=== PATIENT | male | born 1955 | race Caucasian/White ===

== ENCOUNTER 2018-06-17 10:35 | Inpatient (IN) | payer MEDICAID ==
[~2018-06-17] VITALS: Ht 172.7 cm; Wt 60.2 kg
[2018-06-17] MEDS ORDERED: LABETALOL 5MG/ML, 20ML ONE (11:12)
[2018-06-17] MEDS ORDERED: SODIUM CHLORIDE FLUSH 10ML SYR IVF ONE (11:30)
[2018-06-17] MEDS ORDERED: LABETALOL 5MG/ML, 20ML IVPush ONE (11:30)
[2018-06-17] MEDS ORDERED: SODIUM CHLORIDE 0.9% 1,000ML IVBOLUS ONE (11:30)
[2018-06-17 12:06] LABS: ALBUMIN 4.3 g/dL (3.4-5.0); ANION GAP 27 mmol/L (5-15); CALCIUM 8.8 mg/dL (8.5-10.1); CHLORIDE 96 mmol/L (98-107)
[2018-06-17 12:08] LABS: D-DIMER 1.19 ug/mlFEU (0.00-0.52); INTERNATIONAL NORMALIZED RATIO 1.01 (0.93-1.1); PROTHROMBIN TIME 10.5 Seconds (9.6-11.5)
[2018-06-17 12:12] LABS: ALANINE AMINOTRANSFERASE 190 U/L (12-78); ALKALINE PHOSPHATASE 240 U/L (45-117); BILIRUBIN,TOTAL 3.5 mg/dL (0.2-1.0); CREATININE 1.17 mg/dL (0.7-1.3); TOTAL PROTEIN 8.7 g/dL (6.4-8.2); TROPONIN I < 0.015 ng/mL (0.000-0.045)
[2018-06-17 12:48] LABS: MEAN CORPUSCULAR HEMOGLOBIN 36.7 pg (27.5-34.5); MEAN CORPUSCULAR HGB CONC 34.4 g/dL (33.2-36.2); MEAN CORPUSCULAR VOLUME 106.8 fL (81-97); MEAN PLATELET VOLUME 9.8 fL (7.4-10.4); RED BLOOD COUNT 3.72 x10^6/uL (4.38-5.82); RED CELL DISTRIBUTION WIDTH 14.8 % (9.4-14.8)
[2018-06-17 12:49] LABS: HEMOGRAM NOTE RECHECKED; PLATELET COUNT 49 x10^3/uL (130-400)
[2018-06-17 12:51] LABS: <PLATELET ESTIMATE> DECREASED; <PLT MORPHOLOGY> NORMAL PLT MORPH; ANISOCYTOSIS 1+; BASOPHILS # (AUTO) 0.03 x10^3/uL (0-0.1); BASOPHILS % (AUTO) 1 % (0-1); EOSINOPHILS # (AUTO) 0.01 x10^3/uL (0-0.4); EOSINOPHILS % (AUTO) 0 % (1-7); LYMPHOCYTES # (AUTO) 2.23 x10^3/uL (1-3.4); LYMPHOCYTES % (AUTO) 35 % (22-44); MD MORPH REVIEW ONLY; MONOCYTES # (AUTO) 0.35 x10^3/uL (0.2-0.8); MONOCYTES % (AUTO) 6 % (2-9); NEUTROPHILS % (AUTO) 59 % (42-75)
[2018-06-17] MEDS ORDERED: ALBU90AE IH (13:26)
[2018-06-17] MEDS ORDERED: ATOR40TA78 PO (13:26)
[2018-06-17] MEDS ORDERED: METO25TA35 PO (13:26)
[2018-06-17] MEDS ORDERED: LORazepam 1MG TABLET PO ONE (14:30)
[2018-06-17] MEDS ORDERED: LORazepam 1MG TABLET ONE (14:55)
[2018-06-17] MEDS ORDERED: ONDANSETRON 2MG/ML, 2ML IVPush PRN (15:30)
[2018-06-17] MEDS ORDERED: LORazepam 1MG TABLET PO PRN ×3 (15:30)
[2018-06-17] MEDS ORDERED: POLYETHYLENE GLYCOL 17 GM PACKET PO PRN (15:30)
[2018-06-17] MEDS ORDERED: ONDANSETRON ODT 4 MG PO PRN (15:30)
[2018-06-17] MEDS ORDERED: LABETALOL 5MG/ML, 20ML IVPush PRN (15:30)
[2018-06-17] MEDS ORDERED: LORazepam 2 MG/ML, 1ML IV PRN ×4 (15:30)
[2018-06-17 15:47] LABS: FREE T4 (FREE THYROXINE) 0.89 ng/dL (0.76-1.46)
[2018-06-17] MEDS ORDERED: cloniDINE 0.1MG PATCH TD SCH (16:00)
[2018-06-17] MEDS ORDERED: CHLORDIAZEPOXIDE 25 MG CAPSULE PO PRN (16:00)
[2018-06-17 16:05] VITALS: BP 167/109
[2018-06-17] MEDS: AMLODIPINE 5 MG TABLET PO SCH (16:49)
[2018-06-17] MEDS: GABAPENTIN 100 MG CAPSULE PO SCH ×2 (16:49→20:26)
[2018-06-17] MEDS: CARVEDILOL 12.5 MG TABLET PO SCH ×2 (16:49→18:00)
[2018-06-17 17:08] LABS: FOLATE LEVEL 6.8 ng/mL (3.1-17.5); FREE T4 (FREE THYROXINE) 0.76 ng/dL (0.76-1.46)
[2018-06-17] MEDS: POTASSIUM CHLORIDE 20 MEQ, MAGNESIUM SULFATE 1 GM, FOLIC ACID 1 MG, THIAMINE 200 MG, MV... IV SCH (17:43)
[2018-06-17] MEDS: LORazepam 2 MG/ML, 1ML IV PRN (17:45)
[2018-06-17 18:44] VITALS: BP 154/101
[2018-06-17] MEDS: LORazepam 0.5MG TABLET PO PRN (20:28)
[2018-06-17] MEDS ORDERED: ATORVASTATIN 40 MG TABLET PO SCH (21:00)
[2018-06-18 00:45] VITALS: BP 182/110
[2018-06-18 01:39] VITALS: BP 162/97
[2018-06-18] MEDS: POTASSIUM CHLORIDE 10 MEQ in D5%-0.45% NACL 1,000 ML IV SCH ×2 (03:57→20:51)
[2018-06-18] MEDS: LORazepam 2 MG/ML, 1ML IV PRN ×4 (03:57→21:25)
[2018-06-18 05:46] VITALS: BP 155/96
[2018-06-18] MEDS: CARVEDILOL 12.5 MG TABLET PO SCH ×2 (05:46→16:52)
[2018-06-18 06:02] LABS: MEAN CORPUSCULAR HEMOGLOBIN 36.9 pg (27.5-34.5); MEAN CORPUSCULAR HGB CONC 34.7 g/dL (33.2-36.2); MEAN CORPUSCULAR VOLUME 106.3 fL (81-97); RED BLOOD COUNT 3.51 x10^6/uL (4.38-5.82); RED CELL DISTRIBUTION WIDTH 14.4 % (9.4-14.8)
[2018-06-18 06:08] LABS: ALANINE AMINOTRANSFERASE 159 U/L (12-78); ALBUMIN 3.8 g/dL (3.4-5.0); ANION GAP 14 mmol/L (5-15); CALCIUM 8.2 mg/dL (8.5-10.1); CHLORIDE 95 mmol/L (98-107); CREATININE 0.94 mg/dL (0.7-1.3)
[2018-06-18 06:18] LABS: ALKALINE PHOSPHATASE 228 U/L (45-117); TOTAL PROTEIN 8.1 g/dL (6.4-8.2)
[2018-06-18 06:45] LABS: BASOPHILS # (AUTO) 0.01 x10^3/uL (0-0.1); BASOPHILS % (AUTO) 0 % (0-1); EOSINOPHILS # (AUTO) 0.04 x10^3/uL (0-0.4); EOSINOPHILS % (AUTO) 1 % (1-7); LYMPHOCYTES # (AUTO) 1.18 x10^3/uL (1-3.4); LYMPHOCYTES % (AUTO) 28 % (22-44); MD SCAN; MEAN PLATELET VOLUME 9.1 fL (7.4-10.4); MONOCYTES # (AUTO) 0.35 x10^3/uL (0.2-0.8); MONOCYTES % (AUTO) 8 % (2-9); NEUTROPHILS # (AUTO) 2.63 x10^3/uL (1.8-6.8); NEUTROPHILS % (AUTO) 63 % (42-75)
[2018-06-18 06:52] LABS: PLATELET COUNT 36 x10^3/uL (130-400)
[2018-06-18 07:10] VITALS: BP 136/92
[2018-06-18] MEDS ORDERED: MAGNESIUM SULFATE PMX 2GM/50ML 50 ML IV ONE ×3 (07:30→12:00)
[2018-06-18] MEDS: MAGNESIUM SULFATE MC SCH ×3 (08:00→17:04)
[2018-06-18] MEDS: SENNA/DOCUSATE TABLET PO SCH (09:00)
[2018-06-18] MEDS ORDERED: CHLORDIAZEPOXIDE 25 MG CAPSULE ONE (09:00)
[2018-06-18] MEDS: NEUTRA PHOS K 250 MG TABLET PO SCH ×3 (09:05→21:01)
[2018-06-18] MEDS: AMLODIPINE 5 MG TABLET PO SCH (09:06)
[2018-06-18] MEDS: GABAPENTIN 100 MG CAPSULE PO SCH ×3 (09:08→20:47)
[2018-06-18] MEDS: LORazepam 1MG TABLET PO PRN ×2 (09:08→17:55)
[2018-06-18] MEDS: CHLORDIAZEPOXIDE 25 MG CAPSULE PO SCH ×3 (09:10→20:47)
[2018-06-18] MEDS: RIFAXIMIN 550 MG TABLET PO SCH ×2 (12:25→20:47)
[2018-06-18] MEDS: LORazepam 0.5MG TABLET PO PRN (12:25)
[2018-06-18] MEDS: LACTULOSE 20 GM/30 ML UDC PO SCH ×4 (12:25→21:00)
[2018-06-18 13:15] VITALS: BP 124/90
[2018-06-18] MEDS: POTASSIUM CHLORIDE 20 MEQ, MAGNESIUM SULFATE 1 GM, FOLIC ACID 1 MG, THIAMINE 200 MG, MV... IV SCH (16:59)
[2018-06-18] MEDS ORDERED: FUROSEMIDE 20 MG/2 ML ONE (18:34)
[2018-06-18] MEDS ORDERED: FUROSEMIDE 20 MG/2 ML IV ONE (19:00)
[2018-06-18 19:53] VITALS: BP 130/86
[2018-06-19 02:56] VITALS: BP 118/84
[2018-06-19] MEDS: CARVEDILOL 12.5 MG TABLET PO SCH ×2 (07:00→18:00)
[2018-06-19 07:30] VITALS: BP 109/72
[2018-06-19 07:50] LABS: ALBUMIN 3.7 g/dL (3.4-5.0); ANION GAP 11 mmol/L (5-15); CHLORIDE 95 mmol/L (98-107)
[2018-06-19 07:53] LABS: ALANINE AMINOTRANSFERASE 149 U/L (12-78); ALKALINE PHOSPHATASE 223 U/L (45-117); BILIRUBIN,TOTAL 3.1 mg/dL (0.2-1.0); CREATININE 0.94 mg/dL (0.7-1.3); TOTAL PROTEIN 7.6 g/dL (6.4-8.2)
[2018-06-19] MEDS: MAGNESIUM SULFATE MC SCH (08:00)
[2018-06-19 08:05] LABS: BASOPHILS # (AUTO) 0.03 x10^3/uL (0-0.1); BASOPHILS % (AUTO) 0 % (0-1); EOSINOPHILS # (AUTO) 0.06 x10^3/uL (0-0.4); EOSINOPHILS % (AUTO) 1 % (1-7); LYMPHOCYTES # (AUTO) 0.89 x10^3/uL (1-3.4); LYMPHOCYTES % (AUTO) 13 % (22-44); MD SCAN; MEAN CORPUSCULAR HEMOGLOBIN 36.3 pg (27.5-34.5); MEAN CORPUSCULAR HGB CONC 34.6 g/dL (33.2-36.2); MEAN CORPUSCULAR VOLUME 105.2 fL (81-97); MEAN PLATELET VOLUME 10.3 fL (7.4-10.4); MONOCYTES # (AUTO) 0.33 x10^3/uL (0.2-0.8); MONOCYTES % (AUTO) 5 % (2-9); NEUTROPHILS # (AUTO) 5.32 x10^3/uL (1.8-6.8); NEUTROPHILS % (AUTO) 80 % (42-75); RED BLOOD COUNT 3.52 x10^6/uL (4.38-5.82); RED CELL DISTRIBUTION WIDTH 14.2 % (9.4-14.8)
[2018-06-19 08:12] LABS: PLATELET COUNT 32 x10^3/uL (130-400)
[2018-06-19] MEDS: SENNA/DOCUSATE TABLET PO SCH (08:38)
[2018-06-19] MEDS: AMLODIPINE 5 MG TABLET PO SCH (09:00)
[2018-06-19] MEDS: LACTULOSE 20 GM/30 ML UDC PO SCH ×3 (09:00→21:00)
[2018-06-19] MEDS: RIFAXIMIN 550 MG TABLET PO SCH ×2 (09:00→21:00)
[2018-06-19] MEDS: NEUTRA PHOS K 250 MG TABLET PO SCH ×2 (09:00→21:00)
[2018-06-19] MEDS: CHLORDIAZEPOXIDE 25 MG CAPSULE PO SCH ×3 (09:00→21:45)
[2018-06-19] MEDS: GABAPENTIN 100 MG CAPSULE PO SCH ×3 (09:00→21:00)
[2018-06-19] MEDS: LORazepam 2 MG/ML, 1ML IV PRN ×4 (10:02→18:22)
[2018-06-19] MEDS ORDERED: MAGNESIUM SULFATE PMX 2GM/50ML 50 ML IV ONE (13:00)
[2018-06-19] MEDS ORDERED: CHLORDIAZEPOXIDE 25 MG CAPSULE PO ONE (13:30)
[2018-06-19] MEDS: POTASSIUM CHLORIDE 10 MEQ in D5%-0.45% NACL 1,000 ML IV SCH (13:47)
[2018-06-19 14:00] VITALS: BP 118/81
[2018-06-19] MEDS: POTASSIUM CHLORIDE 20 MEQ, MAGNESIUM SULFATE 1 GM, FOLIC ACID 1 MG, THIAMINE 200 MG, MV... IV SCH (18:22)
[2018-06-19 23:12] VITALS: BP 126/87
[2018-06-20] MEDS: POTASSIUM CHLORIDE 10 MEQ in D5%-0.45% NACL 1,000 ML IV SCH ×3 (00:13→22:03)
[2018-06-20 03:05] VITALS: BP 136/90
[2018-06-20 04:37] LABS: MEAN CORPUSCULAR HEMOGLOBIN 36.5 pg (27.5-34.5); MEAN CORPUSCULAR HGB CONC 33.9 g/dL (33.2-36.2); MEAN CORPUSCULAR VOLUME 107.6 fL (81-97); MEAN PLATELET VOLUME 9.9 fL (7.4-10.4); RED BLOOD COUNT 3.26 x10^6/uL (4.38-5.82); RED CELL DISTRIBUTION WIDTH 14.4 % (9.4-14.8)
[2018-06-20 04:38] LABS: PLATELET COUNT 30 x10^3/uL (130-400)
[2018-06-20 04:42] LABS: ALANINE AMINOTRANSFERASE 140 U/L (12-78); ALBUMIN 3.2 g/dL (3.4-5.0); ANION GAP 7 mmol/L (5-15); CALCIUM 7.8 mg/dL (8.5-10.1); CHLORIDE 98 mmol/L (98-107); CREATININE 0.87 mg/dL (0.7-1.3)
[2018-06-20 04:44] LABS: ALKALINE PHOSPHATASE 199 U/L (45-117); BILIRUBIN,TOTAL 2.4 mg/dL (0.2-1.0); TOTAL PROTEIN 7.1 g/dL (6.4-8.2)
[2018-06-20 05:21] LABS: BASOPHILS # (AUTO) 0.02 x10^3/uL (0-0.1); BASOPHILS % (AUTO) 0 % (0-1); EOSINOPHILS # (AUTO) 0.08 x10^3/uL (0-0.4); EOSINOPHILS % (AUTO) 2 % (1-7); LYMPHOCYTES # (AUTO) 1.51 x10^3/uL (1-3.4); LYMPHOCYTES % (AUTO) 29 % (22-44); MD SCAN; MONOCYTES # (AUTO) 0.48 x10^3/uL (0.2-0.8); MONOCYTES % (AUTO) 9 % (2-9); NEUTROPHILS # (AUTO) 3.17 x10^3/uL (1.8-6.8); NEUTROPHILS % (AUTO) 60 % (42-75)
[2018-06-20] MEDS: CARVEDILOL 12.5 MG TABLET PO SCH ×2 (06:00→17:26)
[2018-06-20] MEDS: AMLODIPINE 5 MG TABLET PO SCH (08:16)
[2018-06-20] MEDS: RIFAXIMIN 550 MG TABLET PO SCH ×2 (08:16→22:03)
[2018-06-20] MEDS: SENNA/DOCUSATE TABLET PO SCH (08:16)
[2018-06-20] MEDS: LACTULOSE 20 GM/30 ML UDC PO SCH ×3 (08:16→22:04)
[2018-06-20] MEDS: GABAPENTIN 100 MG CAPSULE PO SCH ×3 (08:16→22:04)
[2018-06-20] MEDS: NEUTRA PHOS K 250 MG TABLET PO SCH ×2 (08:16→22:03)
[2018-06-20 09:00] VITALS: BP 130/87
[2018-06-20] MEDS: CHLORDIAZEPOXIDE 25 MG CAPSULE PO SCH ×2 (09:41→22:04)
[2018-06-20 14:00] VITALS: BP 112/76
[2018-06-20] MEDS: POTASSIUM CHLORIDE 20 MEQ, MAGNESIUM SULFATE 1 GM, FOLIC ACID 1 MG, THIAMINE 200 MG, MV... IV SCH (16:15)
[2018-06-20 21:48] VITALS: BP 118/82
[2018-06-21] VITALS (7 sets, daily range): BP systolic 112–165; BP diastolic 76–107
[2018-06-21 04:49] LABS: ANION GAP 10 mmol/L (5-15); CALCIUM 7.5 mg/dL (8.5-10.1); CHLORIDE 98 mmol/L (98-107); CREATININE 0.93 mg/dL (0.7-1.3)
[2018-06-21 04:56] LABS: MEAN CORPUSCULAR HGB CONC 34.4 g/dL (33.2-36.2); MEAN CORPUSCULAR VOLUME 107.7 fL (81-97); RED BLOOD COUNT 3.24 x10^6/uL (4.38-5.82); RED CELL DISTRIBUTION WIDTH 13.7 % (9.4-14.8)
[2018-06-21] MEDS: CARVEDILOL 12.5 MG TABLET PO SCH ×2 (05:58→17:53)
[2018-06-21 06:01] LABS: MEAN PLATELET VOLUME 11.1 fL (7.4-10.4); PLATELET COUNT 51 x10^3/uL (130-400)
[2018-06-21 06:03] LABS: BASOPHILS # (AUTO) 0.02 x10^3/uL (0-0.1); BASOPHILS % (AUTO) 0 % (0-1); EOSINOPHILS # (AUTO) 0.06 x10^3/uL (0-0.4); EOSINOPHILS % (AUTO) 1 % (1-7); LYMPHOCYTES # (AUTO) 1.67 x10^3/uL (1-3.4); LYMPHOCYTES % (AUTO) 20 % (22-44); MD SCAN; MONOCYTES # (AUTO) 0.91 x10^3/uL (0.2-0.8); MONOCYTES % (AUTO) 11 % (2-9); NEUTROPHILS # (AUTO) 5.58 x10^3/uL (1.8-6.8); NEUTROPHILS % (AUTO) 68 % (42-75)
[2018-06-21] MEDS ORDERED: POTASSIUM CHLORIDE 20 MEQ TAB.ER.PRT PO ONE (07:30)
[2018-06-21] MEDS ORDERED: MAG SULFATE MC SCH (07:30)
[2018-06-21] MEDS ORDERED: MAGNESIUM SULFATE PMX 2GM/50ML 50 ML IV ONE ×2 (07:30)
[2018-06-21 08:00] LABS: ALBUMIN 3.1 g/dL (3.4-5.0); BILIRUBIN, DIRECT 2.2 mg/dL (0.1-0.2)
[2018-06-21 08:07] LABS: BILIRUBIN,INDIRECT 0.9 mg/dL (0.0-2.0); BILIRUBIN,TOTAL 3.1 mg/dL (0.2-1.0); TOTAL PROTEIN 6.7 g/dL (6.4-8.2)
[2018-06-21] MEDS: LACTULOSE 20 GM/30 ML UDC PO SCH ×3 (08:28→21:17)
[2018-06-21] MEDS: GABAPENTIN 100 MG CAPSULE PO SCH ×3 (08:28→21:17)
[2018-06-21] MEDS: AMLODIPINE 5 MG TABLET PO SCH (08:29)
[2018-06-21] MEDS: CHLORDIAZEPOXIDE 25 MG CAPSULE PO SCH ×2 (08:29→21:18)
[2018-06-21] MEDS: RIFAXIMIN 550 MG TABLET PO SCH ×2 (08:29→21:17)
[2018-06-21] MEDS: SENNA/DOCUSATE TABLET PO SCH (08:30)
[2018-06-21] MEDS ORDERED: MAGNESIUM SULFATE PMX 4GM/100M 100 ML IVPB ONE (08:30)
[2018-06-21] MEDS: POTASSIUM CHLORIDE 10 MEQ in D5%-0.45% NACL 1,000 ML IV SCH ×2 (09:56→21:17)
[2018-06-21 10:25] LABS: ALBUMIN 3.2 g/dL (3.4-5.0)
[2018-06-21 10:38] LABS: ALANINE AMINOTRANSFERASE 197 U/L (12-78); ALKALINE PHOSPHATASE 205 U/L (45-117); BILIRUBIN, DIRECT 2.1 mg/dL (0.1-0.2); BILIRUBIN,INDIRECT 0.7 mg/dL (0.0-2.0); BILIRUBIN,TOTAL 2.8 mg/dL (0.2-1.0); TOTAL PROTEIN 6.8 g/dL (6.4-8.2)
[2018-06-21 10:51] LABS: ACETAMINOPHEN < 2 mcg/mL (10-30)
[2018-06-21] MEDS: POTASSIUM CHLORIDE 20 MEQ, MAGNESIUM SULFATE 1 GM, FOLIC ACID 1 MG, THIAMINE 200 MG, MV... IV SCH (17:44)
[2018-06-22 00:38] VITALS: BP 132/52
[2018-06-22] MEDS: CARVEDILOL 12.5 MG TABLET PO SCH ×2 (05:45→18:20)
[2018-06-22 06:15] LABS: ALANINE AMINOTRANSFERASE 179 U/L (12-78); ALBUMIN 3.1 g/dL (3.4-5.0); ANION GAP 11 mmol/L (5-15); CALCIUM 8.4 mg/dL (8.5-10.1); CHLORIDE 100 mmol/L (98-107); CREATININE 0.68 mg/dL (0.7-1.3); MEAN CORPUSCULAR HEMOGLOBIN 37.3 pg (27.5-34.5); MEAN CORPUSCULAR HGB CONC 34.8 g/dL (33.2-36.2); MEAN CORPUSCULAR VOLUME 107.3 fL (81-97); MEAN PLATELET VOLUME 10.8 fL (7.4-10.4); PLATELET COUNT 68 x10^3/uL (130-400); RED BLOOD COUNT 3.32 x10^6/uL (4.38-5.82); RED CELL DISTRIBUTION WIDTH 14.1 % (9.4-14.8)
[2018-06-22 06:18] LABS: ALKALINE PHOSPHATASE 201 U/L (45-117); BILIRUBIN,TOTAL 2.1 mg/dL (0.2-1.0)
[2018-06-22 06:48] LABS: MD YES
[2018-06-22 06:54] LABS: LYMPHS% (MANUAL) 25 % (22-44); MONOS% (MANUAL) 11 % (2-9); SEGS% (MANUAL) 64 % (42-75)
[2018-06-22 06:55] LABS: <PLATELET ESTIMATE> DECREASED; ANISOCYTOSIS 1+; LARGE PLATELETS 1+
[2018-06-22 07:45] VITALS: BP 123/84
[2018-06-22] MEDS: SENNA/DOCUSATE TABLET PO SCH (08:29)
[2018-06-22] MEDS: AMLODIPINE 5 MG TABLET PO SCH (08:36)
[2018-06-22] MEDS: GABAPENTIN 100 MG CAPSULE PO SCH ×3 (08:36→21:34)
[2018-06-22] MEDS: RIFAXIMIN 550 MG TABLET PO SCH ×2 (08:36→21:34)
[2018-06-22] MEDS: CHLORDIAZEPOXIDE 25 MG CAPSULE PO SCH (08:36)
[2018-06-22] MEDS ORDERED: POTASSIUM CHLORIDE 20 MEQ TAB.ER.PRT PO ONE ×2 (09:00→12:30)
[2018-06-22] MEDS: POTASSIUM CHLORIDE 10 MEQ in D5%-0.45% NACL 1,000 ML IV SCH (09:30)
[2018-06-22] MEDS: LACTULOSE 20 GM/30 ML UDC PO SCH ×3 (09:30→21:34)
[2018-06-22] MEDS ORDERED: MAGNESIUM SULFATE PMX 2GM/50ML 50 ML IV ONE (10:30)
[2018-06-22 14:10] VITALS: BP 115/82
[2018-06-22] MEDS: POTASSIUM CHLORIDE 20 MEQ, MAGNESIUM SULFATE 1 GM, FOLIC ACID 1 MG, THIAMINE 200 MG, MV... IV SCH (16:43)
[2018-06-22] MEDS: AMPICILLIN/SULBACTAM 3 GM in SODIUM CHLORIDE 0.9% 100 ML IV SCH ×2 (16:44→22:16)
[2018-06-22 18:20] VITALS: BP 113/75
[2018-06-22 22:57] LABS: MICROSCOPIC NOT IND
[2018-06-23 01:48] VITALS: BP 112/72
[2018-06-23] MEDS: AMPICILLIN/SULBACTAM 3 GM in SODIUM CHLORIDE 0.9% 100 ML IV SCH ×4 (04:20→22:08)
[2018-06-23 05:30] LABS: ANION GAP 8 mmol/L (5-15); CALCIUM 8.4 mg/dL (8.5-10.1); CHLORIDE 102 mmol/L (98-107)
[2018-06-23 05:35] LABS: ALANINE AMINOTRANSFERASE 154 U/L (12-78); ALKALINE PHOSPHATASE 187 U/L (45-117); BILIRUBIN,TOTAL 1.6 mg/dL (0.2-1.0); CREATININE 0.94 mg/dL (0.7-1.3); TOTAL PROTEIN 6.9 g/dL (6.4-8.2)
[2018-06-23 05:44] LABS: MEAN CORPUSCULAR HEMOGLOBIN 36.7 pg (27.5-34.5); MEAN CORPUSCULAR VOLUME 107.9 fL (81-97); RED BLOOD COUNT 3.11 x10^6/uL (4.38-5.82); RED CELL DISTRIBUTION WIDTH 14.3 % (9.4-14.8)
[2018-06-23] MEDS: CARVEDILOL 12.5 MG TABLET PO SCH ×2 (05:54→17:32)
[2018-06-23 06:24] LABS: MD YES
[2018-06-23 06:27] LABS: BAND#(MANUAL) 0.06 x10^3/uL; BANDS%(MANUAL) 1 % (0-7); EOS#(MANUAL) 0.06 x10^3/uL (0.0-0.4); EOS% (MANUAL) 1 % (1-7); LYMPH#(MANUAL) 1.49 x10^3/uL (1-3.4); LYMPHS% (MANUAL) 24 % (22-44); MONOS#(MANUAL) 1.05 x10^3/uL (0.3-2.7); MONOS% (MANUAL) 17 % (2-9); SEG#(MANUAL) 3.53 x10^3/uL (1.8-6.8); SEGS% (MANUAL) 57 % (42-75)
[2018-06-23 06:33] LABS: <PLATELET ESTIMATE> DECREASED; LARGE PLATELETS 1+; MEAN PLATELET VOLUME 10.3 fL (7.4-10.4); PLATELET COUNT 98 x10^3/uL (130-400)
[2018-06-23 06:34] LABS: ANISOCYTOSIS 1+
[2018-06-23 07:56] VITALS: BP 135/90
[2018-06-23] MEDS ORDERED: FOLIC ACID 1 MG TABLET PO ONE (08:30)
[2018-06-23] MEDS: LACTULOSE 20 GM/30 ML UDC PO SCH ×3 (08:52→21:08)
[2018-06-23] MEDS: SENNA/DOCUSATE TABLET PO SCH (08:53)
[2018-06-23] MEDS: THIAMINE 100MG TABLET PO SCH (08:53)
[2018-06-23] MEDS: AMLODIPINE 5 MG TABLET PO SCH (08:53)
[2018-06-23] MEDS: RIFAXIMIN 550 MG TABLET PO SCH ×2 (08:53→21:02)
[2018-06-23] MEDS: GABAPENTIN 100 MG CAPSULE PO SCH ×3 (08:53→21:02)
[2018-06-23] MEDS ORDERED: CHLORDIAZEPOXIDE 25 MG CAPSULE PO SCH (09:00)
[2018-06-23 13:29] VITALS: BP 132/87
[2018-06-23 13:41] LABS: CLOSTRIDIUM DIFFICILE ANTIGEN NEGATIVE; CLOSTRIDIUM DIFFICILE TOXIN NEGATIVE (Negative)
[2018-06-23 18:58] VITALS: BP 137/84
[2018-06-24 01:31] VITALS: BP 146/92
[2018-06-24] MEDS: AMPICILLIN/SULBACTAM 3 GM in SODIUM CHLORIDE 0.9% 100 ML IV SCH ×2 (04:11→09:37)
[2018-06-24 05:09] LABS: MEAN CORPUSCULAR HEMOGLOBIN 37.1 pg (27.5-34.5); MEAN CORPUSCULAR HGB CONC 35.2 g/dL (33.2-36.2); MEAN CORPUSCULAR VOLUME 105.6 fL (81-97); PLATELET COUNT 141 x10^3/uL (130-400); RED BLOOD COUNT 3.29 x10^6/uL (4.38-5.82); RED CELL DISTRIBUTION WIDTH 14.5 % (9.4-14.8)
[2018-06-24 05:13] LABS: ALBUMIN 3.2 g/dL (3.4-5.0); ANION GAP 10 mmol/L (5-15); CALCIUM 8.4 mg/dL (8.5-10.1); CHLORIDE 100 mmol/L (98-107)
[2018-06-24 05:48] LABS: MD YES
[2018-06-24 05:52] LABS: <PLATELET ESTIMATE> ADEQUATE; ANISOCYTOSIS 1+; BAND#(MANUAL) 0.07 x10^3/uL; BANDS%(MANUAL) 1 % (0-7); BASOS#(MANUAL) 0.07 x10^3/uL (0-0.1); BASOS% (MANUAL) 1 % (0-1); EOS#(MANUAL) 0.07 x10^3/uL (0.0-0.4); EOS% (MANUAL) 1 % (1-7); LYMPHS% (MANUAL) 22 % (22-44); MONOS#(MANUAL) 0.82 x10^3/uL (0.3-2.7); MONOS% (MANUAL) 12 % (2-9); SEG#(MANUAL) 4.28 x10^3/uL (1.8-6.8); SEGS% (MANUAL) 63 % (42-75)
[2018-06-24 05:53] LABS: LARGE PLATELETS 1+
[2018-06-24] MEDS: CARVEDILOL 12.5 MG TABLET PO SCH (06:01)
[2018-06-24 06:55] VITALS: BP 142/89
[2018-06-24] MEDS ORDERED: MAGNESIUM SULFATE PMX 2GM/50ML 50 ML IV ONE ×2 (09:00)
[2018-06-24] MEDS: SENNA/DOCUSATE TABLET PO SCH (09:00)
[2018-06-24] MEDS: LACTULOSE 20 GM/30 ML UDC PO SCH (09:00)
[2018-06-24] MEDS: AMLODIPINE 5 MG TABLET PO SCH (09:38)
[2018-06-24] MEDS: THIAMINE 100MG TABLET PO SCH (09:38)
[2018-06-24] MEDS: GABAPENTIN 100 MG CAPSULE PO SCH (09:38)
[2018-06-24] MEDS: RIFAXIMIN 550 MG TABLET PO SCH (09:38)
[2018-06-24] MEDS ORDERED: FOLI-17 PO (13:13)
[2018-06-24] MEDS ORDERED: GABA-826 PO (13:13)
[2018-06-24] MEDS ORDERED: RIFA550T4 PO (13:13)
[2018-06-24] MEDS ORDERED: THIA100T67 PO (13:13)
[2018-06-24] MEDS ORDERED: CARV12.543 PO (13:13)
[2018-06-24] MEDS ORDERED: AMLO5TAB7 PO (13:13)
[2018-06-24] MEDS ORDERED: DOXY100C2 PO (13:26)
[2018-06-24] MEDS ORDERED: AMOX1TAB64 PO (13:26)
[2018-06-24 13:29] VITALS: BP 103/67
== END 2018-06-24 15:20 | DRG 177 ==
LOC: ED 13:42 → EDIP 14:32 → 4WST 15:27
PROVIDERS: ADMIT Hospitalist; ATTEND Hospitalist
DX: J69.0 Pneumonitis due to inhalation of food and vomit (principal); J96.01 Acute respiratory failure with hypoxia; K85.90 Acute pancreatitis without necrosis or infection, unspecified; E87.2 Acidosis; F10.239 Alcohol dependence with withdrawal, unspecified; D69.59 Other secondary thrombocytopenia; D75.89 Other specified diseases of blood and blood-forming organs; E78.5 Hyperlipidemia, unspecified; F10.229 Alcohol dependence with intoxication, unspecified; Y90.9 Presence of alcohol in blood, level not specified; F17.210 Nicotine dependence, cigarettes, uncomplicated; I10 Essential (primary) hypertension; I16.0 Hypertensive urgency; Z86.73 Personal history of transient ischemic attack (TIA), and cerebral infarction without residual deficits; Z91.14 Patient's other noncompliance with medication regimen; K76.0 Fatty (change of) liver, not elsewhere classified; K70.10 Alcoholic hepatitis without ascites
CPT/HCPCS: 36415; 99291; J7121; 71045; 71275; 76700; 80048; 80053; 80076; 80307; 81003; 82040; 82140; 82607; 82746; 83690; 83735; 84100; 84439; 84443; 84484; 85025; 85379; 85610; 85730; 87324; 93005; 96361; 96374; G0378; J0295; J3411; J3475; J3480; J1940; J2060; J7030

== ENCOUNTER 2020-02-25 21:36 | Inpatient (IN) | payer MEDICAID ==
[~2020-02-25] VITALS: Ht 172.7 cm; Wt 75.8 kg
[~2020-02-25 21:36] MED LIST: ALBU90AE IH; AMLO-150 PO; AMOX1TAB64 PO; ATOR40TA78 PO; CARV12.543 PO; DOXY100C2 PO; FOLI-17 PO; GABA-826 PO; METO25TA35 PO; RIFA550T4 PO; THIA100T67 PO
--- NOTE | 2020-02-25 21:40 | NUR ---
pt BIB [facility] from home s/p witnessed seizure. per report, pt is a heavy ETOH drinker (about 1 bottle of whiskey per day) and his last drink was yesterday. pt seized in his bed and was assisted to the floor by son. no head injury, no oral trauma, no loss of bowel/bladder control upon admit, pt is alert, oriented to self, place and situation but unaware of day or date. tachycardinc, hypertensive and diaphoretic no sz activity en route. pt has a fluids bolus without change in HR EKG has been to bedside. Dr. Zazueta has been to bedside for eval pt in resp. isolation D/T report from [facility] that possible rhonchi heard on ausculations. pt denies and COVEID exposure or recent sick contact
[2020-02-25] MEDS ORDERED: LORazepam 2 MG/ML, 1ML ONE ×2 (21:41→21:58)
[2020-02-25] MEDS ORDERED: LORazepam 2 MG/ML, 1ML IVPush PRN (22:00)
[2020-02-25] MEDS ORDERED: SODIUM CHLORIDE FLUSH 10ML SYR IVF ONE (22:00)
[2020-02-25] MEDS ORDERED: SODIUM CHLORIDE 0.9% 1,000ML IVBOLUS ONE (22:00)
[2020-02-25] MEDS ORDERED: MAGNESIUM SULFATE 1 GM, THIAMINE 100 MG, FOLIC ACID 1 MG, MVI ADULT 10 ML in SODIUM CHL... IV ONE (22:00)
[2020-02-25] MEDS ORDERED: LORazepam 2 MG/ML, 1ML IVPush ONE (22:00)
--- NOTE | 2020-02-25 22:02 | NUR ---
pt has been medicated per order. pt also has a wound on R upper park of back that is bruised and looks like is was scabbed over but the scabs have been rubbed off. no bleeding or drainage noted at this time. pt deneis any other wounds lab has been to bedside for draw
--- NOTE | 2020-02-25 22:03 | NUR ---
CXR at bedside
--- NOTE | 2020-02-25 22:15 | NUR ---
pt has been undressed and has been found to have his legs covered in old caked feces on his legs and has redness and irritation in his perineal area. pt cleaned and maria luz care given. pt reports that "it is old" and no fom his sz episode. p has no other wounds on his poserior. has some old abrasions on his knees
[2020-02-25 22:17] LABS: MEAN CORPUSCULAR VOLUME 100.1 fL (81-97); RED BLOOD COUNT 3.97 x10^6/uL (4.38-5.82); RED CELL DISTRIBUTION WIDTH 15.9 % (9.4-14.8)
--- NOTE | 2020-02-25 22:23 | NUR ---
pt in CT scan
[2020-02-25 22:24] LABS: ALANINE AMINOTRANSFERASE 100 U/L (12-78); ALBUMIN 3.5 g/dL (3.4-5.0); ANION GAP 17 mmol/L (5-15); CALCIUM 7.9 mg/dL (8.5-10.1); CHLORIDE 95 mmol/L (98-107); CREATININE 1.24 mg/dL (0.7-1.3)
[2020-02-25 22:29] LABS: ALKALINE PHOSPHATASE 180 U/L (45-117); BILIRUBIN,TOTAL 2.2 mg/dL (0.2-1.0); TOTAL PROTEIN 8.5 g/dL (6.4-8.2); TROPONIN I < 0.015 ng/mL (0.000-0.045)
[2020-02-25 22:32] LABS: BASOPHILS # (AUTO) 0.05 x10^3/uL (0-0.1); BASOPHILS % (AUTO) 1 % (0-1); EOSINOPHILS % (AUTO) 0 % (1-7); LYMPHOCYTES # (AUTO) 0.71 x10^3/uL (1-3.4); LYMPHOCYTES % (AUTO) 10 % (22-44); MD SCAN; MEAN PLATELET VOLUME 8.9 fL (7.4-10.4); MONOCYTES # (AUTO) 0.43 x10^3/uL (0.2-0.8); MONOCYTES % (AUTO) 6 % (2-9); NEUTROPHILS # (AUTO) 5.96 x10^3/uL (1.8-6.8); NEUTROPHILS % (AUTO) 83 % (42-75); PLATELET COUNT 85 x10^3/uL (130-400)
[2020-02-25 22:33] LABS: INTERNATIONAL NORMALIZED RATIO 1.07 (0.93-1.1); PROTHROMBIN TIME 11.4 Seconds (9.6-11.5)
[2020-02-25] MEDS ORDERED: methylPREDNISolone SOD SUCC 125 MG/2 ML IV ONE (23:00)
[2020-02-25] MEDS ORDERED: ALBUTEROL/IPRATROPIUM 2.5MG/0.5MG, 3 ML NPPB ONE (23:00)
[2020-02-25] MEDS ORDERED: POTASSIUM CHLORIDE 40 MEQ in SODIUM CHLORIDE 0.9% 500 ML IV ONE (23:00)
[2020-02-25] MEDS ORDERED: POTASSIUM CHLORIDE 20 MEQ, MAGNESIUM SULFATE 2 GM, THIAMINE 200 MG, MVI ADULT 10 ML, FO... IV SCH (23:02)
--- NOTE | 2020-02-25 23:08 | NUR ---
RT at bedside for breathing tx pt dentures have been labeled and placed in cups with water and put into pt belongings bag
[2020-02-25] MEDS ORDERED: ONDANSETRON 2MG/ML, 2ML IVPush PRN (23:30)
[2020-02-25] MEDS ORDERED: LORazepam 0.5MG TABLET PO PRN (23:30)
[2020-02-25] MEDS ORDERED: ONDANSETRON ODT 4 MG PO PRN (23:30)
[2020-02-25] MEDS ORDERED: PROMETHAZINE 25 MG/ML, 1ML IM PRN (23:30)
[2020-02-25] MEDS ORDERED: LORazepam 1MG TABLET PO PRN ×3 (23:30)
[2020-02-25] MEDS ORDERED: DOCUSATE 100 MG CAPSULE PO PRN (23:30)
[2020-02-25] MEDS ORDERED: ALBUTEROL/IPRATROPIUM 2.5MG/0.5MG, 3 ML IPPB PRN (23:30)
[2020-02-25] MEDS ORDERED: POLYETHYLENE GLYCOL 17 GM PACKET PO PRN (23:30)
[2020-02-25] MEDS ORDERED: OXYcodone IR 5MG TABLET PO PRN (23:30)
[2020-02-25] MEDS ORDERED: NICOTINE 7 MG/24 HR PATCH.TD24 TD SCH (23:30)
[2020-02-25] MEDS ORDERED: ENOXAPARIN 40 MG/0.4 ML SQ SCH (23:30)
[2020-02-25] MEDS ORDERED: BISACODYL 10 MG SUPP PR PRN (23:30)
[2020-02-25] MEDS ORDERED: hydrALAzine 20 MG/ML, 1ML IVPush PRN (23:30)
[2020-02-25] MEDS ORDERED: morphine SULFATE 10 MG/ML, 1ML IVPush PRN (23:30)
[2020-02-25] MEDS ORDERED: LORazepam 2 MG/ML, 1ML IV PRN ×3 (23:30)
--- NOTE | 2020-02-25 23:32 | NUR ---
Per Dr. Lozano, pt does not need resp. isolation Report to Maikel SWEENEY. fluids infusiong. pt dozing intermittently
[2020-02-26] VITALS (7 sets, daily range): BP systolic 144–179; BP diastolic 87–121
[2020-02-26 00:06] LABS: FREE T4 (FREE THYROXINE) 1.13 ng/dL (0.76-1.46)
[2020-02-26] MEDS: LORazepam 1MG TABLET PO PRN ×2 (00:46→05:48)
[2020-02-26] MEDS: methylPREDNISolone SOD SUCC 125 MG/2 ML IVPush SCH ×2 (00:47→06:25)
[2020-02-26] MEDS ORDERED: POTASSIUM CHLORIDE 40 MEQ in SODIUM CHLORIDE 0.9% 500 ML IV ONE (01:30)
[2020-02-26 06:48] LABS: MICROSCOPIC AUTO
[2020-02-26 07:10] LABS: CHLORIDE 98 mmol/L (98-107)
[2020-02-26 07:16] LABS: ALANINE AMINOTRANSFERASE 90 U/L (12-78); ALBUMIN 3.4 g/dL (3.4-5.0); ALKALINE PHOSPHATASE 177 U/L (45-117); ANION GAP 15 mmol/L (5-15); BILIRUBIN,TOTAL 1.8 mg/dL (0.2-1.0); CALCIUM 7.4 mg/dL (8.5-10.1); CHOL/HDL RATIO 2.6; CHOLESTEROL, TOTAL 246 mg/dL (140-239); CREATININE 0.71 mg/dL (0.7-1.3); HDL CHOL % 38 % (26-37); HDL CHOLESTEROL (DIRECT) 93 mg/dL (40-60); LDL CHOLESTEROL,CALCULATED 142 mg/dL (54-169); LDL/HDL RATIO 1.5 (0.5-3.0); TOTAL PROTEIN 8.5 g/dL (6.4-8.2); TRIGLYCERIDES 55 mg/dL (50-200); VLDL CHOLESTEROL 11 mg/dL (0-25)
[2020-02-26 07:48] LABS: BASOPHILS % (AUTO) 0 % (0-1); EOSINOPHILS % (AUTO) 0 % (1-7); LYMPHOCYTES # (AUTO) 0.37 x10^3/uL (1-3.4); LYMPHOCYTES % (AUTO) 7 % (22-44); MD SCAN; MEAN CORPUSCULAR HEMOGLOBIN 34.3 pg (27.5-34.5); MEAN CORPUSCULAR HGB CONC 34.1 g/dL (33.2-36.2); MEAN CORPUSCULAR VOLUME 100.7 fL (81-97); MEAN PLATELET VOLUME 8.9 fL (7.4-10.4); MONOCYTES # (AUTO) 0.06 x10^3/uL (0.2-0.8); MONOCYTES % (AUTO) 1 % (2-9); NEUTROPHILS # (AUTO) 4.65 x10^3/uL (1.8-6.8); NEUTROPHILS % (AUTO) 92 % (42-75); PLATELET COUNT 68 x10^3/uL (130-400); RED CELL DISTRIBUTION WIDTH 16.1 % (9.4-14.8)
[2020-02-26] MEDS ORDERED: POTASSIUM PHOSPHATE 44 MEQ in SODIUM CHLORIDE 0.9% 500 ML IV ONE (08:00)
[2020-02-26] MEDS ORDERED: METOPROLOL TARTRATE 25 MG TAB PO SCH (08:00)
[2020-02-26] MEDS: DIAZEPAM 10 MG TABLET PO SCH ×4 (08:23→20:13)
[2020-02-26] MEDS ORDERED: AZITHROMYCIN 500 MG TABLET PO SCH (10:30)
[2020-02-26] MEDS ORDERED: ALBUTEROL/IPRATROPIUM 2.5MG/0.5MG, 3 ML HHN SCH (10:30)
[2020-02-26] MEDS: ALBUTEROL-IPRATROPIUM MDI INH INH SCH ×3 (11:06→20:13)
[2020-02-26] MEDS: methylPREDNISolone SOD SUCC 40 MG/ML IV SCH ×2 (11:07→17:03)
[2020-02-26] MEDS: NICOTINE 21 MG/24 HR PATCH.TD24 TD SCH (12:54)
[2020-02-26 16:25] LABS: CLOSTRIDIUM DIFFICILE ANTIGEN NEGATIVE; CLOSTRIDIUM DIFFICILE TOXIN NEGATIVE (Negative)
[2020-02-26] MEDS: LOPERAMIDE 2 MG CAPSULE PO SCH ×2 (16:59→23:00)
[2020-02-26] MEDS: METOPROLOL TARTRATE 50 MG TAB PO SCH (20:13)
[2020-02-26] MEDS: LORazepam 2 MG/ML, 1ML IV PRN ×2 (20:13→23:20)
[2020-02-26] MEDS: PSYLLIUM PACKET PO SCH (20:13)
[2020-02-26] MEDS ORDERED: POTASSIUM CHLORIDE 20 MEQ, MAGNESIUM SULFATE 2 GM, THIAMINE 200 MG, MVI ADULT 10 ML, FO... IV SCH (23:00)
[2020-02-27 00:20] VITALS: BP 139/84
[2020-02-27] MEDS: LORazepam 2 MG/ML, 1ML IV PRN ×4 (00:26→10:13)
[2020-02-27] MEDS: methylPREDNISolone SOD SUCC 40 MG/ML IV SCH ×3 (01:45→22:05)
[2020-02-27] MEDS: ALBUTEROL-IPRATROPIUM MDI INH INH SCH ×4 (01:46→21:00)
[2020-02-27] MEDS: LOPERAMIDE 2 MG CAPSULE PO SCH (05:00)
[2020-02-27] MEDS: DIAZEPAM 10 MG TABLET PO SCH ×5 (05:45→22:01)
[2020-02-27] MEDS: POTASSIUM CHLORIDE 20 MEQ TAB.ER.PRT PO ONE ×2 (06:30→10:08)
[2020-02-27 06:47] LABS: ALANINE AMINOTRANSFERASE 71 U/L (12-78); ALBUMIN 3.3 g/dL (3.4-5.0); ANION GAP 11 mmol/L (5-15); CALCIUM 7.2 mg/dL (8.5-10.1); CHLORIDE 101 mmol/L (98-107); CREATININE 0.92 mg/dL (0.7-1.3)
[2020-02-27 06:49] LABS: ALKALINE PHOSPHATASE 140 U/L (45-117); BILIRUBIN,TOTAL 1.3 mg/dL (0.2-1.0)
[2020-02-27 07:28] LABS: BASOPHILS % (AUTO) 0 % (0-1); EOSINOPHILS % (AUTO) 0 % (1-7); LYMPHOCYTES # (AUTO) 0.46 x10^3/uL (1-3.4); LYMPHOCYTES % (AUTO) 5 % (22-44); MD SCAN; MEAN CORPUSCULAR HEMOGLOBIN 33.9 pg (27.5-34.5); MEAN CORPUSCULAR HGB CONC 33.4 g/dL (33.2-36.2); MEAN CORPUSCULAR VOLUME 101.6 fL (81-97); MEAN PLATELET VOLUME 10.3 fL (7.4-10.4); MONOCYTES # (AUTO) 0.44 x10^3/uL (0.2-0.8); MONOCYTES % (AUTO) 5 % (2-9); NEUTROPHILS # (AUTO) 8.65 x10^3/uL (1.8-6.8); NEUTROPHILS % (AUTO) 91 % (42-75); PLATELET COUNT 70 x10^3/uL (130-400); RED BLOOD COUNT 3.81 x10^6/uL (4.38-5.82); RED CELL DISTRIBUTION WIDTH 16.1 % (9.4-14.8)
[2020-02-27] MEDS ORDERED: LOPERAMIDE 2 MG CAPSULE PO PRN (07:30)
[2020-02-27] MEDS ORDERED: MAGNESIUM SULFATE PMX 2GM/50ML 50 ML IV ONE (07:30)
[2020-02-27 08:11] VITALS: BP 160/102
[2020-02-27] MEDS: METOPROLOL TARTRATE 50 MG TAB PO SCH ×3 (09:00→22:01)
[2020-02-27] MEDS ORDERED: DOXYCYCLINE 100MG TABLET PO SCH (09:00)
[2020-02-27] MEDS: PSYLLIUM PACKET PO SCH ×3 (09:00→22:01)
[2020-02-27] MEDS ORDERED: LORazepam 2 MG/ML, 1ML IVPush PRN (11:00)
[2020-02-27] MEDS: LEVETIRACETAM 1,000 MG in SODIUM CHLORIDE 0.9% 100 ML IV SCH ×2 (12:24→23:48)
[2020-02-27] MEDS: NICOTINE 21 MG/24 HR PATCH.TD24 TD SCH (14:01)
[2020-02-27 14:44] VITALS: BP 166/106
[2020-02-27] MEDS: NYSTATIN TOPICAL POWDER 15GM TP SCH ×2 (16:30→22:01)
[2020-02-27] MEDS: LACTATED RINGERS 1,000 ML IV SCH (17:21)
[2020-02-27 19:53] VITALS: BP 166/102
[2020-02-27] MEDS: DOXYCYCLINE 50 MG/5 ML ORAL SUSP PO SCH (22:01)
[2020-02-27] MEDS ORDERED: POTASSIUM CHLORIDE 20 MEQ, MAGNESIUM SULFATE 2 GM, THIAMINE 200 MG, MVI ADULT 10 ML, FO... IV SCH (23:00)
[2020-02-28 01:49] VITALS: BP 156/93
[2020-02-28] MEDS: ALBUTEROL-IPRATROPIUM MDI INH INH SCH ×4 (03:00→21:00)
[2020-02-28 05:44] LABS: MEAN CORPUSCULAR HEMOGLOBIN 33.8 pg (27.5-34.5); MEAN CORPUSCULAR HGB CONC 32.9 g/dL (33.2-36.2); MEAN PLATELET VOLUME 10.1 fL (7.4-10.4); PLATELET COUNT 70 x10^3/uL (130-400); RED BLOOD COUNT 3.67 x10^6/uL (4.38-5.82); RED CELL DISTRIBUTION WIDTH 16.1 % (9.4-14.8)
[2020-02-28 05:55] LABS: CHLORIDE 103 mmol/L (98-107)
[2020-02-28] MEDS: LACTATED RINGERS 1,000 ML IV SCH (05:58)
[2020-02-28] MEDS: methylPREDNISolone SOD SUCC 40 MG/ML IV SCH ×3 (05:58→21:37)
[2020-02-28] MEDS: DIAZEPAM 10 MG TABLET PO SCH ×4 (05:58→21:29)
[2020-02-28] MEDS: NYSTATIN TOPICAL POWDER 15GM TP SCH ×4 (05:58→21:30)
[2020-02-28 06:18] LABS: ANION GAP 9 mmol/L (5-15); CALCIUM 7.2 mg/dL (8.5-10.1); CREATININE 0.76 mg/dL (0.7-1.3)
[2020-02-28] MEDS ORDERED: POTASSIUM CHLORIDE 10% 40 MEQ/30 ML UDC PO ONE (06:30)
[2020-02-28 06:55] VITALS: BP 151/94
[2020-02-28 07:10] LABS: BASOPHILS % (AUTO) 0 % (0-1); EOSINOPHILS % (AUTO) 0 % (1-7); LYMPHOCYTES # (AUTO) 0.38 x10^3/uL (1-3.4); LYMPHOCYTES % (AUTO) 4 % (22-44); MD SCAN; MONOCYTES % (AUTO) 5 % (2-9); NEUTROPHILS # (AUTO) 8.06 x10^3/uL (1.8-6.8); NEUTROPHILS % (AUTO) 91 % (42-75)
[2020-02-28] MEDS: DOXYCYCLINE 50 MG/5 ML ORAL SUSP PO SCH ×2 (10:22→21:36)
[2020-02-28] MEDS: LEVETIRACETAM 1,000 MG in SODIUM CHLORIDE 0.9% 100 ML IV SCH ×2 (10:22→22:38)
[2020-02-28] MEDS: PSYLLIUM PACKET PO SCH ×2 (10:22→21:00)
[2020-02-28] MEDS: METOPROLOL TARTRATE 50 MG TAB PO SCH ×2 (10:22→21:29)
[2020-02-28] MEDS: THIAMINE 100MG TABLET PO SCH (12:53)
[2020-02-28] MEDS: NICOTINE 21 MG/24 HR PATCH.TD24 TD SCH (13:03)
[2020-02-28 13:25] VITALS: BP 180/113
[2020-02-28] MEDS ORDERED: LISINOPRIL 20 MG TABLET ONE (14:20)
[2020-02-28] MEDS: LISINOPRIL 20 MG TABLET PO SCH ×2 (14:22→21:29)
[2020-02-28 16:37] VITALS: BP 168/105
[2020-02-28 20:58] VITALS: BP 168/106
[2020-02-29 00:41] VITALS: BP 157/94
[2020-02-29] MEDS: ALBUTEROL-IPRATROPIUM MDI INH INH SCH ×4 (03:00→20:47)
[2020-02-29 05:05] LABS: ANION GAP 7 mmol/L (5-15); CALCIUM 7.1 mg/dL (8.5-10.1); CHLORIDE 105 mmol/L (98-107)
[2020-02-29 05:08] LABS: CREATININE 0.75 mg/dL (0.7-1.3)
[2020-02-29] MEDS: NYSTATIN TOPICAL POWDER 15GM TP SCH ×4 (06:11→20:48)
[2020-02-29] MEDS: methylPREDNISolone SOD SUCC 40 MG/ML IV SCH (06:12)
[2020-02-29] MEDS: DIAZEPAM 10 MG TABLET PO SCH ×3 (06:12→20:47)
[2020-02-29] MEDS ORDERED: POTASSIUM CHLORIDE 20 MEQ TAB.ER.PRT PO ONE (06:30)
[2020-02-29] MEDS ORDERED: MAGNESIUM SULFATE PMX 4GM/100M 100 ML IV ONE (06:30)
[2020-02-29 06:31] VITALS: BP 136/78
[2020-02-29] MEDS: PSYLLIUM PACKET PO SCH ×2 (09:00→20:47)
[2020-02-29] MEDS ORDERED: methylPREDNISolone SOD SUCC 40 MG/ML IV SCH (10:00)
[2020-02-29] MEDS: METOPROLOL TARTRATE 50 MG TAB PO SCH ×2 (10:33→20:47)
[2020-02-29] MEDS: LEVETIRACETAM 500 MG TABLET PO SCH ×2 (10:33→20:47)
[2020-02-29] MEDS: TAMSULOSIN 0.4 MG CAP.ER.24H PO SCH (10:33)
[2020-02-29] MEDS: THIAMINE 100MG TABLET PO SCH (10:34)
[2020-02-29] MEDS: LISINOPRIL 20 MG TABLET PO SCH ×2 (10:34→20:47)
[2020-02-29] MEDS: DOXYCYCLINE 50 MG/5 ML ORAL SUSP PO SCH ×2 (10:35→20:48)
[2020-02-29 10:44] VITALS: BP 170/103
[2020-02-29 12:12] VITALS: BP 169/105
[2020-02-29 13:14] VITALS: BP 136/85
[2020-02-29] MEDS: NICOTINE 21 MG/24 HR PATCH.TD24 TD SCH (13:34)
[2020-02-29 18:46] VITALS: BP 166/100
[2020-03-01 01:08] VITALS: BP 150/86
[2020-03-01] MEDS: ALBUTEROL-IPRATROPIUM MDI INH INH SCH ×2 (02:53→08:19)
[2020-03-01 05:05] LABS: ANION GAP 7 mmol/L (5-15); CALCIUM 7.7 mg/dL (8.5-10.1); CHLORIDE 107 mmol/L (98-107); CREATININE 0.85 mg/dL (0.7-1.3)
[2020-03-01] MEDS: NYSTATIN TOPICAL POWDER 15GM TP SCH ×2 (06:00→11:13)
[2020-03-01] MEDS ORDERED: POTASSIUM CHLORIDE 20 MEQ TAB.ER.PRT PO ONE (06:30)
[2020-03-01 07:29] VITALS: BP 151/91
[2020-03-01] MEDS: THIAMINE 100MG TABLET PO SCH (08:15)
[2020-03-01] MEDS: DIAZEPAM 10 MG TABLET PO SCH (08:15)
[2020-03-01] MEDS: PSYLLIUM PACKET PO SCH (08:15)
[2020-03-01] MEDS: TAMSULOSIN 0.4 MG CAP.ER.24H PO SCH (08:16)
[2020-03-01] MEDS: METOPROLOL TARTRATE 50 MG TAB PO SCH (08:16)
[2020-03-01] MEDS: LEVETIRACETAM 500 MG TABLET PO SCH (08:16)
[2020-03-01] MEDS: LISINOPRIL 20 MG TABLET PO SCH (08:16)
[2020-03-01] MEDS: DOXYCYCLINE 50 MG/5 ML ORAL SUSP PO SCH (08:19)
[2020-03-01] MEDS ORDERED: AMLODIPINE 5 MG TABLET PO SCH (09:00)
[2020-03-01] MEDS ORDERED: LISI-170 PO (09:35)
[2020-03-01] MEDS ORDERED: TAMS-11 PO (09:35)
[2020-03-01] MEDS ORDERED: DOXY50SY PO (09:35)
[2020-03-01] MEDS ORDERED: LEVE500T53 PO (09:35)
[2020-03-01] MEDS ORDERED: DIAZ10TA4 PO (09:35)
[2020-03-01] MEDS ORDERED: NYST15PO2 TP (09:35)
[2020-03-01] MEDS ORDERED: METO50TA82 PO (09:35)
[2020-03-01 12:32] LABS: ALBUMIN 2.8 g/dL (3.4-5.0)
[2020-03-01 12:37] LABS: BILIRUBIN, DIRECT 0.2 mg/dL (0.1-0.2); BILIRUBIN,INDIRECT 0.6 mg/dL (0.0-2.0); BILIRUBIN,TOTAL 0.8 mg/dL (0.2-1.0); TOTAL PROTEIN 7.2 g/dL (6.4-8.2)
[2020-03-01 12:40] VITALS: BP 159/105
[2020-03-01] MEDS: NICOTINE 21 MG/24 HR PATCH.TD24 TD SCH (12:47)
[2020-03-01] MEDS ORDERED: ATORVASTATIN 40 MG TABLET PO SCH (21:00)
[2020-03-01] MEDS ORDERED: DIAZEPAM 10 MG TABLET PO SCH (21:00)
== END 2020-03-01 15:57 | DRG 100 ==
LOC: ED 23:24 → EDIP 23:26 → 4WST 02-26 00:20 → 4EST 02-26 19:25
PROVIDERS: ADMIT Internal Medicine; ATTEND Hospitalist
DX: G40.89 Other seizures (principal); J96.01 Acute respiratory failure with hypoxia; F10.239 Alcohol dependence with withdrawal, unspecified; J44.1 Chronic obstructive pulmonary disease with (acute) exacerbation; D69.6 Thrombocytopenia, unspecified; K76.0 Fatty (change of) liver, not elsewhere classified; E87.6 Hypokalemia; E78.5 Hyperlipidemia, unspecified; K70.10 Alcoholic hepatitis without ascites; F17.200 Nicotine dependence, unspecified, uncomplicated; R53.81 Other malaise; E86.0 Dehydration; J32.0 Chronic maxillary sinusitis; R13.10 Dysphagia, unspecified; I10 Essential (primary) hypertension; Z86.73 Personal history of transient ischemic attack (TIA), and cerebral infarction without residual deficits
CPT/HCPCS: 36415; 74018; J7042; 70450; 71045; 76700; 80048; 80053; 80061; 80074; 80076; 80307; 81001; 82306; 82607; 83036; 83735; 83880; 84100; 84132; 84439; 84443; 84484; 85025; 85610; 85730; 87040; 87324; 87635; 93005; G0378; J1650; J1953; J3411; J3475; J3480; J0360; J2060; J2920; J2930; J7030; J7040; J7120

== ENCOUNTER 2020-05-30 20:06 | Inpatient (IN) | payer MEDICAID ==
[~2020-05-30] VITALS: Ht 172.7 cm; Wt 68.2 kg
[~2020-05-30 20:06] MED LIST changes: +DIAZ10TA4 PO; +DOXY50SY PO; +LEVE500T53 PO; +LISI-170 PO; +METO50TA82 PO; +NYST15PO2 TP; +TAMS-11 PO
[2020-05-30] MEDS ORDERED: LORazepam 2 MG/ML, 1ML ONE ×2 (20:26→22:11)
[2020-05-30] MEDS ORDERED: SODIUM CHLORIDE FLUSH 10ML SYR IVF ONE (20:30)
[2020-05-30] MEDS ORDERED: SODIUM CHLORIDE 0.9% 1,000ML IVBOLUS ONE ×2 (20:30→22:30)
[2020-05-30] MEDS: LORazepam 2 MG/ML, 1ML IVPush PRN ×2 (20:30→22:13)
[2020-05-30] MEDS ORDERED: THIAMINE 100MG TABLET PO ONE (20:30)
[2020-05-30] MEDS ORDERED: THIAMINE 100MG TABLET ONE (20:31)
[2020-05-30 20:54] LABS: BASOPHILS % (AUTO) 1 % (0-1); EOSINOPHILS % (AUTO) 0 % (1-7); LYMPHOCYTES % (AUTO) 13 % (22-44); MEAN CORPUSCULAR HEMOGLOBIN 33.2 pg (27.5-34.5); MEAN CORPUSCULAR HGB CONC 33.6 g/dL (33.2-36.2); MEAN PLATELET VOLUME 9.3 fL (7.4-10.4); MONOCYTES % (AUTO) 8 % (2-9); NEUTROPHILS % (AUTO) 79 % (42-75); PLATELET COUNT 57 x10^3/uL (130-400); RED BLOOD COUNT 4.01 x10^6/uL (4.38-5.82); RED CELL DISTRIBUTION WIDTH 15.3 % (9.4-14.8)
[2020-05-30 21:02] LABS: ALBUMIN 3.8 g/dL (3.4-5.0); ANION GAP 13 mmol/L (5-15); CALCIUM 7.5 mg/dL (8.5-10.1); CHLORIDE 99 mmol/L (98-107); CREATININE 1.07 mg/dL (0.7-1.3)
[2020-05-30] MEDS ORDERED: POTASSIUM CHLORIDE 20 MEQ TAB.ER.PRT ONE (21:15)
[2020-05-30] MEDS ORDERED: POTASSIUM CHLORIDE 20 MEQ PACKET ONE (21:19)
[2020-05-30 21:30] LABS: MD SCAN
[2020-05-30] MEDS ORDERED: POTASSIUM CHLORIDE 20 MEQ PACKET PO ONE (21:30)
[2020-05-30] MEDS ORDERED: NS + 40MEQ KCL 1,000 ML IV ONE (22:19)
[2020-05-30] MEDS ORDERED: POTASSIUM CHLORIDE 40 MEQ in SODIUM CHLORIDE 0.9% 500 ML IV ONE (22:30)
[2020-05-30] MEDS ORDERED: ONDANSETRON ODT 4 MG PO PRN (23:00)
[2020-05-30] MEDS ORDERED: LORazepam 2 MG/ML, 1ML IVPush PRN (23:00)
[2020-05-30] MEDS ORDERED: BISACODYL 10 MG SUPP PR PRN (23:00)
[2020-05-30] MEDS ORDERED: POLYETHYLENE GLYCOL 17 GM PACKET PO PRN (23:00)
[2020-05-31] MEDS: LEVETIRACETAM 500 MG TABLET PO SCH ×3 (00:14→20:23)
[2020-05-31] MEDS: LISINOPRIL 20 MG TABLET PO SCH ×3 (00:15→20:23)
[2020-05-31] MEDS: THIAMINE 100MG TABLET PO SCH ×3 (00:15→20:24)
[2020-05-31] MEDS: METOPROLOL TARTRATE 50 MG TAB PO SCH ×3 (00:15→20:23)
[2020-05-31 00:25] VITALS: BP 156/96
[2020-05-31] MEDS ORDERED: LORazepam 2 MG/ML, 1ML IVPush PRN (00:30)
[2020-05-31] MEDS ORDERED: MAGNESIUM SULFATE PMX 4GM/100M 100 ML IV ONE (00:30)
[2020-05-31 02:48] VITALS: BP 132/83
[2020-05-31] MEDS: NS + 20MEQ KCL 1,000 ML IV SCH ×2 (05:51→14:12)
[2020-05-31 05:58] LABS: ANION GAP 7 mmol/L (5-15); CALCIUM 7.4 mg/dL (8.5-10.1); CHLORIDE 103 mmol/L (98-107); CREATININE 0.67 mg/dL (0.7-1.3)
[2020-05-31 06:01] LABS: BASOPHILS % (AUTO) 1 % (0-1); EOSINOPHILS % (AUTO) 1 % (1-7); LYMPHOCYTES % (AUTO) 23 % (22-44); MEAN CORPUSCULAR HEMOGLOBIN 33.3 pg (27.5-34.5); MEAN CORPUSCULAR HGB CONC 33.4 g/dL (33.2-36.2); MEAN PLATELET VOLUME 10.1 fL (7.4-10.4); MONOCYTES % (AUTO) 9 % (2-9); NEUTROPHILS % (AUTO) 67 % (42-75); PLATELET COUNT 53 x10^3/uL (130-400); RED BLOOD COUNT 3.74 x10^6/uL (4.38-5.82); RED CELL DISTRIBUTION WIDTH 15.5 % (9.4-14.8)
[2020-05-31 06:52] LABS: MD NO
[2020-05-31 07:46] VITALS: BP 147/88
[2020-05-31] MEDS ORDERED: LORazepam 0.5MG TABLET PO PRN (08:30)
[2020-05-31] MEDS ORDERED: LORazepam 2 MG/ML, 1ML IV PRN (08:30)
[2020-05-31] MEDS ORDERED: LORazepam 1MG TABLET PO PRN ×2 (08:30)
[2020-05-31] MEDS ORDERED: AMLODIPINE 5 MG TABLET PO SCH (09:00)
[2020-05-31] MEDS: FOLIC ACID 1 MG TABLET PO SCH (09:00)
[2020-05-31] MEDS ORDERED: DIAZEPAM 5 MG TABLET PO SCH (09:00)
[2020-05-31] MEDS ORDERED: FOLIC ACID 1 MG TABLET PO SCH (09:00)
[2020-05-31] MEDS: AMLODIPINE 5 MG TABLET PO SCH (09:40)
[2020-05-31] MEDS: MULTIVITAMINS/MINERALS TABLET PO SCH (09:40)
[2020-05-31] MEDS: CALCIUM CARBONATE 500 MG TABLET PO SCH ×2 (09:40→20:23)
[2020-05-31] MEDS: SENNA/DOCUSATE TABLET PO SCH (09:40)
[2020-05-31] MEDS: TAMSULOSIN 0.4 MG CAP.ER.24H PO SCH (09:41)
[2020-05-31 12:58] VITALS: BP 139/87
[2020-05-31] MEDS: ENOXAPARIN 40 MG/0.4 ML SQ SCH (13:09)
[2020-05-31] MEDS: POTASSIUM CHLORIDE 20 MEQ TAB.ER.PRT PO SCH (17:58)
[2020-05-31 18:57] VITALS: BP 131/72
[2020-05-31] MEDS: CHLORDIAZEPOXIDE 10 MG CAPSULE PO PRN (20:23)
[2020-05-31] MEDS: LORazepam 2 MG/ML, 1ML IV PRN (23:06)
[2020-06-01] MEDS: LORazepam 2 MG/ML, 1ML IV PRN ×11 (00:06→23:25)
[2020-06-01 01:04] VITALS: BP 148/94
[2020-06-01] MEDS: CHLORDIAZEPOXIDE 10 MG CAPSULE PO PRN ×2 (01:04→19:51)
[2020-06-01] MEDS: NS + 20MEQ KCL 1,000 ML IV SCH ×3 (02:29→22:51)
[2020-06-01 06:38] LABS: ALBUMIN 3.8 g/dL (3.4-5.0); ANION GAP 12 mmol/L (5-15); CALCIUM 7.8 mg/dL (8.5-10.1); CHLORIDE 104 mmol/L (98-107)
[2020-06-01 06:42] LABS: ALANINE AMINOTRANSFERASE 40 U/L (12-78); ALKALINE PHOSPHATASE 133 U/L (45-117); BILIRUBIN,TOTAL 1.5 mg/dL (0.2-1.0); CREATININE 0.76 mg/dL (0.7-1.3); TOTAL PROTEIN 7.4 g/dL (6.4-8.2)
[2020-06-01] MEDS: TAMSULOSIN 0.4 MG CAP.ER.24H PO SCH (08:02)
[2020-06-01] MEDS: LEVETIRACETAM 500 MG TABLET PO SCH ×2 (08:02→19:51)
[2020-06-01] MEDS: POTASSIUM CHLORIDE 20 MEQ TAB.ER.PRT PO SCH ×2 (08:02→16:11)
[2020-06-01] MEDS: AMLODIPINE 5 MG TABLET PO SCH (08:02)
[2020-06-01] MEDS: LISINOPRIL 20 MG TABLET PO SCH ×2 (08:02→19:51)
[2020-06-01] MEDS: CALCIUM CARBONATE 500 MG TABLET PO SCH ×2 (08:02→19:51)
[2020-06-01] MEDS: METOPROLOL TARTRATE 50 MG TAB PO SCH ×2 (08:02→19:51)
[2020-06-01] MEDS: FOLIC ACID 1 MG TABLET PO SCH (08:03)
[2020-06-01] MEDS: THIAMINE 100MG TABLET PO SCH ×2 (08:03→19:51)
[2020-06-01] MEDS: SENNA/DOCUSATE TABLET PO SCH (08:03)
[2020-06-01] MEDS: MULTIVITAMINS/MINERALS TABLET PO SCH (08:07)
[2020-06-01 08:10] VITALS: BP 170/114
[2020-06-01 10:30] VITALS: BP 156/84
[2020-06-01] MEDS: ENOXAPARIN 40 MG/0.4 ML SQ SCH (12:14)
[2020-06-01 13:52] VITALS: BP 158/102
[2020-06-01 18:18] VITALS: BP 154/98
[2020-06-01 18:43] VITALS: BP 155/92
[2020-06-02] MEDS: LORazepam 2 MG/ML, 1ML IV PRN ×5 (00:34→13:47)
[2020-06-02] MEDS: DIAZEPAM 10 MG TABLET PO SCH ×2 (01:24→08:28)
[2020-06-02 01:33] VITALS: BP 152/90
[2020-06-02 07:13] VITALS: BP 155/98
[2020-06-02] MEDS: LEVETIRACETAM 500 MG TABLET PO SCH ×2 (08:28→20:02)
[2020-06-02] MEDS: LISINOPRIL 20 MG TABLET PO SCH ×2 (08:28→20:01)
[2020-06-02] MEDS: METOPROLOL TARTRATE 50 MG TAB PO SCH ×2 (08:28→20:02)
[2020-06-02] MEDS: AMLODIPINE 5 MG TABLET PO SCH (08:28)
[2020-06-02] MEDS: TAMSULOSIN 0.4 MG CAP.ER.24H PO SCH (08:30)
[2020-06-02] MEDS: FOLIC ACID 1 MG TABLET PO SCH (08:30)
[2020-06-02] MEDS: MULTIVITAMINS/MINERALS TABLET PO SCH (08:30)
[2020-06-02] MEDS: CALCIUM CARBONATE 500 MG TABLET PO SCH ×2 (08:31→20:01)
[2020-06-02] MEDS: THIAMINE 100MG TABLET PO SCH ×2 (08:31→20:02)
[2020-06-02] MEDS: SENNA/DOCUSATE TABLET PO SCH (08:33)
[2020-06-02] MEDS: POTASSIUM CHLORIDE 20 MEQ TAB.ER.PRT PO SCH ×2 (08:33→16:12)
[2020-06-02 08:44] LABS: ALANINE AMINOTRANSFERASE 41 U/L (12-78); ALBUMIN 3.7 g/dL (3.4-5.0); ANION GAP 11 mmol/L (5-15); CALCIUM 7.8 mg/dL (8.5-10.1); CHLORIDE 106 mmol/L (98-107); CREATININE 0.68 mg/dL (0.7-1.3)
[2020-06-02 08:46] LABS: ALKALINE PHOSPHATASE 117 U/L (45-117); BILIRUBIN,TOTAL 1.4 mg/dL (0.2-1.0); TOTAL PROTEIN 7.8 g/dL (6.4-8.2)
[2020-06-02] MEDS: NS + 20MEQ KCL 1,000 ML IV SCH (09:32)
[2020-06-02] MEDS: CHLORDIAZEPOXIDE 25 MG CAPSULE PO SCH ×3 (10:56→21:00)
[2020-06-02] MEDS: ENOXAPARIN 40 MG/0.4 ML SQ SCH (10:56)
[2020-06-02 12:32] VITALS: BP 138/91
[2020-06-02] MEDS: POTASSIUM CHLORIDE 10 MEQ in D5%-0.45% NACL 1,000 ML IV SCH (17:06)
[2020-06-02 19:20] VITALS: BP 151/95
[2020-06-03 00:08] VITALS: BP 154/93
[2020-06-03] MEDS ORDERED: DIAZEPAM 5 MG TABLET PO SCH (01:30)
[2020-06-03] MEDS: POTASSIUM CHLORIDE 10 MEQ in D5%-0.45% NACL 1,000 ML IV SCH ×3 (03:25→17:53)
[2020-06-03] MEDS: CHLORDIAZEPOXIDE 25 MG CAPSULE PO SCH (05:30)
[2020-06-03 06:18] VITALS: BP 159/92
[2020-06-03] MEDS: SENNA/DOCUSATE TABLET PO SCH (08:58)
[2020-06-03] MEDS: TAMSULOSIN 0.4 MG CAP.ER.24H PO SCH (08:58)
[2020-06-03] MEDS: LEVETIRACETAM 500 MG TABLET PO SCH ×2 (08:58→20:02)
[2020-06-03] MEDS: AMLODIPINE 5 MG TABLET PO SCH (08:58)
[2020-06-03] MEDS: METOPROLOL TARTRATE 50 MG TAB PO SCH ×2 (08:59→20:02)
[2020-06-03] MEDS: FOLIC ACID 1 MG TABLET PO SCH (08:59)
[2020-06-03] MEDS: LISINOPRIL 20 MG TABLET PO SCH ×2 (08:59→20:02)
[2020-06-03] MEDS: THIAMINE 100MG TABLET PO SCH ×2 (09:00→20:02)
[2020-06-03] MEDS: MULTIVITAMINS/MINERALS TABLET PO SCH (09:00)
[2020-06-03] MEDS: CALCIUM CARBONATE 500 MG TABLET PO SCH ×2 (09:00→20:02)
[2020-06-03] MEDS: POTASSIUM CHLORIDE 20 MEQ TAB.ER.PRT PO SCH (09:00)
[2020-06-03] MEDS: ENOXAPARIN 40 MG/0.4 ML SQ SCH (11:55)
[2020-06-03 13:05] VITALS: BP 146/78
[2020-06-03 19:04] VITALS: BP 131/85
[2020-06-04 01:50] VITALS: BP 126/79
[2020-06-04 05:18] LABS: ALANINE AMINOTRANSFERASE 50 U/L (12-78); ALBUMIN 3.4 g/dL (3.4-5.0); ANION GAP 8 mmol/L (5-15); CALCIUM 9.3 mg/dL (8.5-10.1); CHLORIDE 101 mmol/L (98-107); CREATININE 0.81 mg/dL (0.7-1.3)
[2020-06-04 05:20] LABS: ALKALINE PHOSPHATASE 122 U/L (45-117); BILIRUBIN,TOTAL 0.9 mg/dL (0.2-1.0); TOTAL PROTEIN 7.5 g/dL (6.4-8.2)
[2020-06-04 05:21] LABS: BASOPHILS % (AUTO) 1 % (0-1); EOSINOPHILS % (AUTO) 1 % (1-7); LYMPHOCYTES % (AUTO) 30 % (22-44); MEAN CORPUSCULAR HEMOGLOBIN 33.7 pg (27.5-34.5); MEAN CORPUSCULAR HGB CONC 33.5 g/dL (33.2-36.2); MEAN PLATELET VOLUME 9.4 fL (7.4-10.4); MONOCYTES % (AUTO) 23 % (2-9); NEUTROPHILS % (AUTO) 45 % (42-75); PLATELET COUNT 100 x10^3/uL (130-400); RED BLOOD COUNT 4.13 x10^6/uL (4.38-5.82); RED CELL DISTRIBUTION WIDTH 14.8 % (9.4-14.8)
[2020-06-04 06:10] LABS: MD SCAN
[2020-06-04 06:17] VITALS: BP 143/87
[2020-06-04] MEDS: MULTIVITAMINS/MINERALS TABLET PO SCH (09:21)
[2020-06-04] MEDS: SENNA/DOCUSATE TABLET PO SCH (09:21)
[2020-06-04] MEDS: AMLODIPINE 5 MG TABLET PO SCH (09:21)
[2020-06-04] MEDS: LEVETIRACETAM 500 MG TABLET PO SCH (09:21)
[2020-06-04] MEDS: THIAMINE 100MG TABLET PO SCH (09:22)
[2020-06-04] MEDS: LISINOPRIL 20 MG TABLET PO SCH (09:22)
[2020-06-04] MEDS: FOLIC ACID 1 MG TABLET PO SCH (09:22)
[2020-06-04] MEDS: TAMSULOSIN 0.4 MG CAP.ER.24H PO SCH (09:22)
[2020-06-04] MEDS: METOPROLOL TARTRATE 50 MG TAB PO SCH (09:22)
[2020-06-04] MEDS: CALCIUM CARBONATE 500 MG TABLET PO SCH (09:22)
[2020-06-04 11:50] VITALS: BP 144/89
[2020-06-04 11:52] VITALS: BP 148/91
[2020-06-04] MEDS: ENOXAPARIN 40 MG/0.4 ML SQ SCH (12:00)
[2020-06-04] MEDS: POTASSIUM CHLORIDE 10 MEQ in D5%-0.45% NACL 1,000 ML IV SCH (13:00)
== END 2020-06-04 15:24 | disposition home or self-care (01) | DRG 896 ==
LOC: ED 21:31 → EDIP 22:34 → 4EST 23:39 → 4WST 05-31 14:24
PROVIDERS: ADMIT Internal Medicine; ATTEND Family Medicine
PROC: HZ2ZZZZ Detoxification Services for Substance Abuse Treatment (ICD-10-PCS; principal; 2020-06-03)
DX: F10.239 Alcohol dependence with withdrawal, unspecified (principal); G93.41 Metabolic encephalopathy; E87.1 Hypo-osmolality and hyponatremia; D69.6 Thrombocytopenia, unspecified; D75.89 Other specified diseases of blood and blood-forming organs; E78.5 Hyperlipidemia, unspecified; E83.51 Hypocalcemia; E87.6 Hypokalemia; F17.210 Nicotine dependence, cigarettes, uncomplicated; I10 Essential (primary) hypertension; J44.9 Chronic obstructive pulmonary disease, unspecified; K76.0 Fatty (change of) liver, not elsewhere classified; R56.9 Unspecified convulsions; T42.4X5A Adverse effect of benzodiazepines, initial encounter; F19.10 Other psychoactive substance abuse, uncomplicated; Z71.6 Tobacco abuse counseling
CPT/HCPCS: 36415; 70450; 80048; 80053; 82040; 82330; 83036; 83735; 84100; 85025; 93005; 93306; 93356; 93880; 96361; 96374; 96376; 99291; G0378; J1650; J3480; J2060; J3475; J7030; J7040

== ENCOUNTER 2020-10-04 09:50 | Inpatient (IN) | payer MEDICAID ==
[~2020-10-04] VITALS: Ht 172.7 cm; Wt 62.8 kg
[~2020-10-04 09:50] MED LIST changes: -FOLI-17 PO; +FOLI1TAB32 PO
--- NOTE | 2020-10-04 10:23 | NUR ---
pt in bed. tele sr. started piv. iv fluids running
[2020-10-04] MEDS ORDERED: SODIUM CHLORIDE FLUSH 10ML SYR IVF ONE (10:30)
[2020-10-04] MEDS ORDERED: SODIUM CHLORIDE 0.9% 1,000ML IVBOLUS ONE (10:30)
[2020-10-04] MEDS ORDERED: SODIUM CHLORIDE 0.9% 1,000 ML IV ONE (10:30)
[2020-10-04 10:39] LABS: BASOPHILS % (AUTO) 1 % (0-1); EOSINOPHILS % (AUTO) 1 % (1-7); LYMPHOCYTES % (AUTO) 30 % (22-44); MEAN CORPUSCULAR HEMOGLOBIN 34.9 pg (27.5-34.5); MEAN CORPUSCULAR HGB CONC 34.8 g/dL (33.2-36.2); MEAN PLATELET VOLUME 9.1 fL (7.4-10.4); MONOCYTES % (AUTO) 10 % (2-9); NEUTROPHILS % (AUTO) 58 % (42-75); PLATELET COUNT 208 x10^3/uL (130-400); RED CELL DISTRIBUTION WIDTH 15.2 % (9.4-14.8)
[2020-10-04 10:40] LABS: MD NO
[2020-10-04 10:55] LABS: ALANINE AMINOTRANSFERASE 119 U/L (12-78); ALBUMIN 3.4 g/dL (3.4-5.0); ANION GAP 21 mmol/L (5-15); CALCIUM 7.7 mg/dL (8.5-10.1); CHLORIDE 90 mmol/L (98-107)
[2020-10-04 10:57] LABS: ALKALINE PHOSPHATASE 418 U/L (45-117); BILIRUBIN,TOTAL 3.3 mg/dL (0.2-1.0); TOTAL PROTEIN 8.5 g/dL (6.4-8.2)
--- NOTE | 2020-10-04 11:11 | NUR ---
pt in bed iv fluids done.
[2020-10-04] MEDS ORDERED: MAGNESIUM SULFATE IV SCH (11:30)
[2020-10-04] MEDS ORDERED: FOLIC ACID IV SCH (11:30)
[2020-10-04] MEDS ORDERED: POTASSIUM CHLORIDE IV SCH (11:30)
[2020-10-04] MEDS ORDERED: THIAMINE IV SCH (11:30)
[2020-10-04] MEDS ORDERED: [UNRECOGNIZED DRUG - OTHER] IV SCH (11:30)
[2020-10-04] MEDS ORDERED: CHLORDIAZEPOXIDE 25 MG CAPSULE PO ONE (12:00)
--- NOTE | 2020-10-04 12:01 | NUR ---
MED REC DONE. PT STATES HE QUIT TAKING HIS MEDS MONTHS AGO. NOTIFIED
[2020-10-04] MEDS ORDERED: CHLORDIAZEPOXIDE 25 MG CAPSULE ONE (12:22)
--- NOTE | 2020-10-04 12:31 | NUR ---
RALLY BAG STARTED
--- NOTE | 2020-10-04 13:06 | NUR ---
REPORT GIVEN TO LUIS SWEENEY. PT NOTIFIED OF TRANSPORT.
[2020-10-04 13:22] VITALS: BP 164/94
[2020-10-04 13:48] VITALS: BP 164/94
[2020-10-04] MEDS ORDERED: ATOR-2 PO (14:54)
[2020-10-04] MEDS ORDERED: LORazepam 0.5MG TABLET PO PRN (15:00)
[2020-10-04] MEDS ORDERED: LORazepam 2 MG/ML, 1ML IV PRN ×5 (15:00)
[2020-10-04] MEDS ORDERED: LORazepam 1MG TABLET PO PRN ×4 (15:00)
[2020-10-04 15:50] LABS: AMPHETAMINE SCREEN, URINE Negative (Negative); BARBITURATE SCREEN, URINE Negative (Negative); BENZODIAZEPINE SCREEN, URINE Positive (Negative); CANNABINOID SCREEN, URINE Negative (Negative); COCAINE SCREEN, URINE Negative (Negative); METHADONE SCREEN, URINE Negative (Negative); OPIATE SCREEN, URINE Negative (Negative)
[2020-10-04 15:51] LABS: MICROSCOPIC INDICATED
[2020-10-04] MEDS ORDERED: DOCUSATE 100 MG CAPSULE PO PRN (16:00)
[2020-10-04] MEDS ORDERED: ONDANSETRON ODT 4 MG PO PRN (16:00)
[2020-10-04] MEDS ORDERED: ACETAMINOPHEN 325 MG TABLET PO PRN (16:00)
[2020-10-04] MEDS ORDERED: hydrALAzine 20 MG/ML, 1ML IVPush PRN (16:00)
[2020-10-04] MEDS ORDERED: POLYETHYLENE GLYCOL 17 GM PACKET PO PRN (16:00)
[2020-10-04] MEDS ORDERED: BISACODYL 10 MG SUPP PR PRN (16:00)
[2020-10-04] MEDS ORDERED: ONDANSETRON 2MG/ML, 2ML IVPush PRN (16:00)
[2020-10-04] MEDS ORDERED: MAGNESIUM SULFATE PMX 2GM/50ML 50 ML IV ONE (16:30)
[2020-10-04] MEDS ORDERED: POTASSIUM CHLORIDE 40 MEQ in SODIUM CHLORIDE 0.9% 500 ML IV ONE (16:30)
[2020-10-04] MEDS: LORazepam 1MG TABLET PO SCH ×2 (16:41→19:55)
[2020-10-04] MEDS: HEPARIN 5,000 UNITS/ML, 1ML SQ SCH ×2 (16:42→23:31)
[2020-10-04] MEDS: NICOTINE 21 MG/24 HR PATCH.TD24 TD SCH (18:21)
[2020-10-04 19:54] VITALS: BP 128/76
[2020-10-04] MEDS: LACTULOSE 10 GM/15 ML UDC PO SCH (19:55)
[2020-10-04] MEDS: LACTATED RINGERS 1,000 ML IV SCH (23:22)
[2020-10-05 00:38] VITALS: BP 146/82
[2020-10-05 05:37] LABS: BASOPHILS % (AUTO) 1 % (0-1); EOSINOPHILS % (AUTO) 1 % (1-7); LYMPHOCYTES % (AUTO) 26 % (22-44); MD NO; MEAN CORPUSCULAR HGB CONC 35.2 g/dL (33.2-36.2); MEAN PLATELET VOLUME 9.2 fL (7.4-10.4); MONOCYTES % (AUTO) 10 % (2-9); NEUTROPHILS % (AUTO) 62 % (42-75); PLATELET COUNT 140 x10^3/uL (130-400); RED BLOOD COUNT 2.35 x10^6/uL (4.38-5.82); RED CELL DISTRIBUTION WIDTH 15.3 % (9.4-14.8)
[2020-10-05 06:11] LABS: ALBUMIN 2.4 g/dL (3.4-5.0); ANION GAP 11 mmol/L (5-15); CALCIUM 6.3 mg/dL (8.5-10.1); CHLORIDE 95 mmol/L (98-107)
[2020-10-05] MEDS: LORazepam 1MG TABLET PO SCH ×4 (06:16→20:04)
[2020-10-05] MEDS: PANTOPRAZOLE 40MG TABLET PO SCH (06:16)
[2020-10-05 06:22] LABS: ALANINE AMINOTRANSFERASE 90 U/L (12-78); ALKALINE PHOSPHATASE 368 U/L (45-117); BILIRUBIN,TOTAL 2.5 mg/dL (0.2-1.0); CREATININE 0.75 mg/dL (0.7-1.3); TOTAL PROTEIN 6.2 g/dL (6.4-8.2)
[2020-10-05 07:16] VITALS: BP 132/81
[2020-10-05] MEDS: HEPARIN 5,000 UNITS/ML, 1ML SQ SCH ×3 (08:01→23:36)
[2020-10-05] MEDS: LACTULOSE 10 GM/15 ML UDC PO SCH ×2 (08:01→20:03)
[2020-10-05] MEDS ORDERED: POTASSIUM CHLORIDE 40 MEQ in SODIUM CHLORIDE 0.9% 500 ML IV ONE (10:00)
[2020-10-05] MEDS ORDERED: MAGNESIUM SULFATE PMX 4GM/100M 100 ML IVPB ONE (10:00)
[2020-10-05] MEDS ORDERED: CLON0.1T22 PO (11:23)
[2020-10-05] MEDS: MULTIVITAMIN 1 TABLET PO SCH (11:58)
[2020-10-05] MEDS: FOLIC ACID 1 MG TABLET PO SCH (11:58)
[2020-10-05] MEDS: THIAMINE 100MG TABLET PO SCH ×2 (11:58→20:04)
[2020-10-05 12:07] VITALS: BP 139/93
[2020-10-05 12:33] LABS: OCCULT BLOOD NEGATIVE (NEGATIVE)
[2020-10-05] MEDS ORDERED: POTASSIUM PHOSPHATE 44 MEQ in SODIUM CHLORIDE 0.9% 500 ML IV ONE (14:00)
[2020-10-05] MEDS: NICOTINE 21 MG/24 HR PATCH.TD24 TD SCH (15:53)
[2020-10-05 18:50] VITALS: BP 122/79
[2020-10-05] MEDS: MELATONIN 5 MG TABLET PO PRN (20:04)
[2020-10-05] MEDS: LACTATED RINGERS 1,000 ML IV SCH (23:35)
[2020-10-06 01:03] VITALS: BP 136/90
[2020-10-06] MEDS: LORazepam 1MG TABLET PO SCH ×4 (04:57→21:36)
[2020-10-06 06:05] LABS: BASOPHILS % (AUTO) 1 % (0-1); EOSINOPHILS % (AUTO) 1 % (1-7); LYMPHOCYTES % (AUTO) 31 % (22-44); MEAN CORPUSCULAR HEMOGLOBIN 35.1 pg (27.5-34.5); MEAN CORPUSCULAR HGB CONC 34.9 g/dL (33.2-36.2); MEAN PLATELET VOLUME 9.9 fL (7.4-10.4); MONOCYTES % (AUTO) 7 % (2-9); NEUTROPHILS % (AUTO) 61 % (42-75); PLATELET COUNT 132 x10^3/uL (130-400); RED BLOOD COUNT 2.58 x10^6/uL (4.38-5.82); RED CELL DISTRIBUTION WIDTH 16.2 % (9.4-14.8)
[2020-10-06 06:15] LABS: MD NO
[2020-10-06 06:19] LABS: ALBUMIN 2.6 g/dL (3.4-5.0); ANION GAP 10 mmol/L (5-15); CALCIUM 6.8 mg/dL (8.5-10.1); CHLORIDE 98 mmol/L (98-107)
[2020-10-06 06:23] LABS: ALANINE AMINOTRANSFERASE 96 U/L (12-78); ALKALINE PHOSPHATASE 347 U/L (45-117); BILIRUBIN,TOTAL 3.2 mg/dL (0.2-1.0); CREATININE 0.82 mg/dL (0.7-1.3); TOTAL PROTEIN 6.5 g/dL (6.4-8.2)
[2020-10-06 08:00] VITALS: BP 133/90
[2020-10-06] MEDS: LACTULOSE 10 GM/15 ML UDC PO SCH ×2 (10:13→21:36)
[2020-10-06] MEDS: FOLIC ACID 1 MG TABLET PO SCH (10:13)
[2020-10-06] MEDS: PANTOPRAZOLE 40MG TABLET PO SCH (10:13)
[2020-10-06] MEDS: MULTIVITAMIN 1 TABLET PO SCH (10:13)
[2020-10-06] MEDS: THIAMINE 100MG TABLET PO SCH ×2 (10:13→21:36)
[2020-10-06] MEDS: HEPARIN 5,000 UNITS/ML, 1ML SQ SCH ×2 (10:14→17:57)
[2020-10-06 13:05] VITALS: BP 102/67
[2020-10-06] MEDS ORDERED: MAGNESIUM SULFATE PMX 4GM/100M 100 ML IVPB ONE (14:30)
[2020-10-06] MEDS ORDERED: POTASSIUM CHLORIDE 40 MEQ in SODIUM CHLORIDE 0.9% 500 ML IV ONE (14:30)
[2020-10-06] MEDS: NICOTINE 21 MG/24 HR PATCH.TD24 TD SCH (17:56)
[2020-10-06 19:01] VITALS: BP 119/80
[2020-10-06] MEDS: MELATONIN 5 MG TABLET PO PRN (21:36)
[2020-10-07 00:37] VITALS: BP 144/90
[2020-10-07] MEDS: HEPARIN 5,000 UNITS/ML, 1ML SQ SCH ×4 (00:49→23:52)
[2020-10-07 05:02] LABS: BASOPHILS % (AUTO) 1 % (0-1); EOSINOPHILS % (AUTO) 3 % (1-7); LYMPHOCYTES % (AUTO) 26 % (22-44); MEAN CORPUSCULAR HEMOGLOBIN 35.4 pg (27.5-34.5); MEAN CORPUSCULAR HGB CONC 34.7 g/dL (33.2-36.2); MEAN PLATELET VOLUME 10.1 fL (7.4-10.4); MONOCYTES % (AUTO) 7 % (2-9); NEUTROPHILS % (AUTO) 63 % (42-75); PLATELET COUNT 118 x10^3/uL (130-400); RED BLOOD COUNT 2.44 x10^6/uL (4.38-5.82); RED CELL DISTRIBUTION WIDTH 16.3 % (9.4-14.8)
[2020-10-07 05:09] LABS: ALBUMIN 2.6 g/dL (3.4-5.0); ANION GAP 8 mmol/L (5-15); CALCIUM 7.3 mg/dL (8.5-10.1); CHLORIDE 102 mmol/L (98-107)
[2020-10-07 05:13] LABS: ALANINE AMINOTRANSFERASE 76 U/L (12-78); ALKALINE PHOSPHATASE 294 U/L (45-117); BILIRUBIN,TOTAL 3.1 mg/dL (0.2-1.0); CREATININE 0.82 mg/dL (0.7-1.3)
[2020-10-07] MEDS: PANTOPRAZOLE 40MG TABLET PO SCH (06:00)
[2020-10-07] MEDS: LORazepam 1MG TABLET PO SCH (06:01)
[2020-10-07 06:19] LABS: MD SCAN
[2020-10-07] MEDS ORDERED: MAGNESIUM SULFATE 3 GM in SODIUM CHLORIDE 0.9% 100 ML IV ONE (08:30)
[2020-10-07] MEDS: LACTULOSE 10 GM/15 ML UDC PO SCH ×2 (08:59→20:24)
[2020-10-07] MEDS: FOLIC ACID 1 MG TABLET PO SCH (08:59)
[2020-10-07] MEDS: THIAMINE 100MG TABLET PO SCH ×2 (08:59→20:22)
[2020-10-07] MEDS: MULTIVITAMIN 1 TABLET PO SCH (08:59)
[2020-10-07 10:00] VITALS: BP 124/79
[2020-10-07] MEDS ORDERED: POTASSIUM CHLORIDE 20 MEQ TAB.ER.PRT PO ONE (10:00)
[2020-10-07] MEDS: LORazepam 0.5MG TABLET PO SCH ×3 (10:56→20:22)
[2020-10-07 13:35] VITALS: BP 137/87
[2020-10-07] MEDS: NICOTINE 21 MG/24 HR PATCH.TD24 TD SCH (15:56)
[2020-10-07 20:18] VITALS: BP 145/93
[2020-10-08 01:41] VITALS: BP 133/81
[2020-10-08 05:35] LABS: ANION GAP 6 mmol/L (5-15); CALCIUM 7.4 mg/dL (8.5-10.1); CHLORIDE 105 mmol/L (98-107); CREATININE 0.84 mg/dL (0.7-1.3)
[2020-10-08] MEDS: LORazepam 0.5MG TABLET PO SCH ×4 (05:43→20:09)
[2020-10-08 05:45] LABS: BASOPHILS % (AUTO) 1 % (0-1); EOSINOPHILS % (AUTO) 2 % (1-7); LYMPHOCYTES % (AUTO) 24 % (22-44); MEAN CORPUSCULAR HEMOGLOBIN 35.5 pg (27.5-34.5); MEAN CORPUSCULAR HGB CONC 34.4 g/dL (33.2-36.2); MONOCYTES % (AUTO) 7 % (2-9); NEUTROPHILS % (AUTO) 66 % (42-75); PLATELET COUNT 113 x10^3/uL (130-400); RED BLOOD COUNT 2.37 x10^6/uL (4.38-5.82); RED CELL DISTRIBUTION WIDTH 17.1 % (9.4-14.8)
[2020-10-08 05:52] LABS: MD NO
[2020-10-08] MEDS: PANTOPRAZOLE 40MG TABLET PO SCH (07:00)
[2020-10-08] MEDS ORDERED: MAGNESIUM SULFATE PMX 2GM/50ML 50 ML IV ONE ×2 (07:00→15:00)
[2020-10-08] MEDS: HEPARIN 5,000 UNITS/ML, 1ML SQ SCH ×2 (07:58→15:46)
[2020-10-08] MEDS: LACTULOSE 10 GM/15 ML UDC PO SCH ×2 (07:58→20:09)
[2020-10-08] MEDS: FOLIC ACID 1 MG TABLET PO SCH (07:58)
[2020-10-08] MEDS: THIAMINE 100MG TABLET PO SCH ×2 (07:58→20:09)
[2020-10-08] MEDS: MULTIVITAMIN 1 TABLET PO SCH (07:58)
[2020-10-08 08:33] VITALS: BP 149/85
[2020-10-08 13:22] VITALS: BP 163/110
[2020-10-08 15:17] VITALS: BP 151/98
[2020-10-08] MEDS: NICOTINE 21 MG/24 HR PATCH.TD24 TD SCH (17:31)
[2020-10-08 20:53] VITALS: BP 125/81
[2020-10-09] MEDS: HEPARIN 5,000 UNITS/ML, 1ML SQ SCH ×2 (00:14→08:36)
[2020-10-09 02:23] VITALS: BP 151/102
[2020-10-09 05:39] LABS: CHLORIDE 101 mmol/L (98-107)
[2020-10-09 05:45] LABS: ANION GAP 8 mmol/L (5-15); CALCIUM 7.8 mg/dL (8.5-10.1); CREATININE 0.89 mg/dL (0.7-1.3)
[2020-10-09] MEDS: LORazepam 0.5MG TABLET PO SCH (05:45)
[2020-10-09 07:58] VITALS: BP 155/96
[2020-10-09] MEDS ORDERED: MAGNESIUM SULFATE PMX 2GM/50ML 50 ML IV ONE (08:30)
[2020-10-09] MEDS: THIAMINE 100MG TABLET PO SCH (08:36)
[2020-10-09] MEDS: LACTULOSE 10 GM/15 ML UDC PO SCH (08:36)
[2020-10-09] MEDS: PANTOPRAZOLE 40MG TABLET PO SCH (08:36)
[2020-10-09] MEDS: MULTIVITAMIN 1 TABLET PO SCH (08:36)
[2020-10-09] MEDS: FOLIC ACID 1 MG TABLET PO SCH (08:36)
[2020-10-09] MEDS ORDERED: LORazepam 0.5MG TABLET PO SCH (09:00)
[2020-10-09 14:17] VITALS: BP 165/108
== END 2020-10-09 15:45 | disposition home or self-care (01) | DRG 432 ==
LOC: ED 11:24 → EDIP 12:39 → 4EST 13:16
PROVIDERS: ADMIT Family Medicine; ATTEND Family Medicine
DX: K70.10 Alcoholic hepatitis without ascites (principal); K72.00 Acute and subacute hepatic failure without coma; E87.1 Hypo-osmolality and hyponatremia; F10.239 Alcohol dependence with withdrawal, unspecified; I50.32 Chronic diastolic (congestive) heart failure; D53.9 Nutritional anemia, unspecified; E78.5 Hyperlipidemia, unspecified; E83.42 Hypomagnesemia; E83.51 Hypocalcemia; E87.6 Hypokalemia; F17.210 Nicotine dependence, cigarettes, uncomplicated; I11.0 Hypertensive heart disease with heart failure; J44.9 Chronic obstructive pulmonary disease, unspecified; R56.9 Unspecified convulsions; I65.23 Occlusion and stenosis of bilateral carotid arteries; R74.8 Abnormal levels of other serum enzymes; R55 Syncope and collapse
CPT/HCPCS: 36415; 71046; 80048; 80053; 80307; 81001; 82140; 82272; 82607; 82728; 83036; 83540; 83550; 83690; 83735; 84100; 84443; 85025; 93005; 96361; 96365; 99285; G0378; J1644; J3411; J3475; J3480; J7030; J7040; J7120

== ENCOUNTER 2021-04-30 20:01 | Inpatient (IN) | payer MEDICAID ==
[~2021-04-30] VITALS: Ht 172.7 cm; Wt 72.7 kg
[~2021-04-30 20:01] MED LIST changes: +ATOR-2 PO; +CLON0.1T22 PO; -DOXY100C2 PO; +DOXY100C5 PO
--- NOTE | 2021-04-30 20:09 | NUR ---
p[t currently in decontamination room with two personnel cleansing and deconing pt due to firefighters stating they saw beg bug on pt. pt appears in nadn. A&ox3, breathing even and unlabored.
--- NOTE | 2021-04-30 20:30 | NUR ---
PT IN ROOM 31. ATTACHED TO [facility]. [facility] AT [facility]
[2021-04-30] MEDS ORDERED: THIAMINE 100MG TABLET PO ONE (21:00)
[2021-04-30] MEDS ORDERED: SODIUM CHLORIDE 0.9% 1,000 ML IV ONE (21:00)
[2021-04-30] MEDS ORDERED: LORazepam 2 MG/ML, 1ML IVPush PRN (21:00)
[2021-04-30] MEDS ORDERED: SODIUM CHLORIDE FLUSH 10ML SYR IVF ONE (21:00)
[2021-04-30] MEDS ORDERED: SODIUM CHLORIDE 0.9% 1,000ML IVBOLUS ONE (21:00)
--- NOTE | 2021-04-30 21:00 | NUR ---
ryan from home. pt had 5 minute tonic clinic seizure witnessed by family pt states seaizure from alcohol withdrawal. has not drank in 3 days. pt states hx of seizure, no head injury. seizure was in bed. pt slightly post ictal when first came in. pt currently A&Ox4, breeathing even and unlbaored. packaging engineer dto card/sp02/bp monitos. vss. nadn at moment. resting in bed. ekg at bedside. pt deconned due to possible bedbug exposure,
[2021-04-30] MEDS ORDERED: THIAMINE 100MG TABLET ONE (21:09)
[2021-04-30 21:38] LABS: BASOPHILS % (AUTO) 1 % (0-1); EOSINOPHILS % (AUTO) 0 % (1-7); LYMPHOCYTES % (AUTO) 10 % (22-44); MEAN CORPUSCULAR HEMOGLOBIN 33.4 pg (27.5-34.5); MEAN CORPUSCULAR HGB CONC 33.9 g/dL (33.2-36.2); MEAN PLATELET VOLUME 9.4 fL (7.4-10.4); MONOCYTES % (AUTO) 13 % (2-9); NEUTROPHILS % (AUTO) 75 % (42-75); PLATELET COUNT 110 x10^3/uL (130-400); RED BLOOD COUNT 4.49 x10^6/uL (4.38-5.82); RED CELL DISTRIBUTION WIDTH 16.4 % (9.4-14.8)
[2021-04-30 21:47] LABS: ALANINE AMINOTRANSFERASE 96 U/L (12-78); ALBUMIN 3.6 g/dL (3.4-5.0); ANION GAP 9 mmol/L (5-15); CALCIUM 7.8 mg/dL (8.5-10.1); CHLORIDE 96 mmol/L (98-107); CREATININE 1.41 mg/dL (0.7-1.3)
[2021-04-30 21:48] LABS: ALKALINE PHOSPHATASE 155 U/L (45-117); BILIRUBIN,TOTAL 1.9 mg/dL (0.2-1.0); TOTAL PROTEIN 8.7 g/dL (6.4-8.2)
[2021-04-30 22:00] LABS: AMPHETAMINE SCREEN, URINE Negative (Negative); BARBITURATE SCREEN, URINE Negative (Negative); BENZODIAZEPINE SCREEN, URINE Positive (Negative); CANNABINOID SCREEN, URINE Negative (Negative); COCAINE SCREEN, URINE Negative (Negative); METHADONE SCREEN, URINE Negative (Negative); OPIATE SCREEN, URINE Negative (Negative)
[2021-04-30] MEDS ORDERED: LORazepam 0.5MG TABLET PO PRN (22:30)
[2021-04-30] MEDS ORDERED: MELATONIN 5 MG TABLET PO PRN (22:30)
[2021-04-30] MEDS ORDERED: ONDANSETRON 2MG/ML, 2ML IVPush PRN (22:30)
[2021-04-30] MEDS ORDERED: SODIUM CHLORIDE FLUSH 10ML SYR IVF PRN (22:30)
[2021-04-30] MEDS ORDERED: POLYETHYLENE GLYCOL 17 GM PACKET PO PRN (22:30)
[2021-04-30] MEDS ORDERED: LORazepam 2 MG/ML, 1ML IV PRN (22:30)
[2021-04-30] MEDS ORDERED: LORazepam 1MG TABLET PO PRN (22:30)
[2021-04-30] MEDS ORDERED: POTASSIUM CHLORIDE 20 MEQ TAB.ER.PRT PO ONE (22:30)
[2021-04-30] MEDS ORDERED: NS + 40MEQ KCL 1,000 ML IV ONE (22:30)
[2021-04-30] MEDS ORDERED: ENOXAPARIN 40 MG/0.4 ML ONE (23:07)
[2021-04-30] MEDS ORDERED: POTASSIUM CHLORIDE 20 MEQ TAB.ER.PRT ONE (23:07)
[2021-04-30] MEDS: ENOXAPARIN 40 MG/0.4 ML SQ SCH (23:12)
--- NOTE | 2021-04-30 23:19 | NUR ---
TASK RN: PT SITTING UP IN [place]. NON-TREMULOUS; A&OX4. PT MEDICATED PER EMAR. K+3.0. IVF CONTINUES TO INFUSE. BP/SPO2/ECG MONITORING IN PLACE. SINUS TACH ON MONITOR. Addendum: 04/30/21 at 2321 by LWEGENER HYPERTENSIVE; DENIES CHEST PAIN/COLON.
[2021-04-30] MEDS ORDERED: LABETALOL 5MG/ML, 20ML ONE (23:26)
[2021-04-30] MEDS ORDERED: ACETAMINOPHEN 500 MG TABLET PO PRN (23:30)
[2021-04-30] MEDS: LABETALOL 5MG/ML, 20ML IVPush PRN (23:31)
--- NOTE | 2021-04-30 23:33 | NUR ---
TASK RN: MEDICATED PER EMAR FOR SBP >170MMHG
--- NOTE | 2021-05-01 00:10 | NUR ---
gave report to ilia rooney [facility]
[2021-05-01 04:11] VITALS: BP 163/109
[2021-05-01] MEDS ORDERED: LABETALOL 5MG/ML, 20ML ONE (04:16)
[2021-05-01] MEDS: LABETALOL 5MG/ML, 20ML IVPush PRN ×2 (04:21→06:11)
[2021-05-01 04:52] LABS: MICROSCOPIC INDICATED
[2021-05-01 05:03] VITALS: BP 166/113
[2021-05-01 05:54] LABS: BASOPHILS % (AUTO) 1 % (0-1); EOSINOPHILS % (AUTO) 1 % (1-7); LYMPHOCYTES % (AUTO) 24 % (22-44); MEAN CORPUSCULAR HEMOGLOBIN 33.2 pg (27.5-34.5); MEAN CORPUSCULAR HGB CONC 33.4 g/dL (33.2-36.2); MONOCYTES % (AUTO) 15 % (2-9); NEUTROPHILS % (AUTO) 59 % (42-75); PLATELET COUNT 96 x10^3/uL (130-400); RED BLOOD COUNT 4.13 x10^6/uL (4.38-5.82)
[2021-05-01 06:04] LABS: ALBUMIN 3.3 g/dL (3.4-5.0); ANION GAP 10 mmol/L (5-15); CALCIUM 6.9 mg/dL (8.5-10.1); CHLORIDE 104 mmol/L (98-107)
[2021-05-01 06:09] LABS: ALANINE AMINOTRANSFERASE 82 U/L (12-78); ALKALINE PHOSPHATASE 127 U/L (45-117); BILIRUBIN, DIRECT 0.6 mg/dL (0.1-0.2); BILIRUBIN,INDIRECT 0.8 mg/dL (0.0-2.0); BILIRUBIN,TOTAL 1.4 mg/dL (0.2-1.0); CREATININE 0.96 mg/dL (0.7-1.3); TOTAL PROTEIN 7.5 g/dL (6.4-8.2)
[2021-05-01] MEDS: niFEDipine ER 30 MG TABLET.ER PO SCH (06:10)
[2021-05-01] MEDS: POTASSIUM CHLORIDE 20 MEQ, MAGNESIUM SULFATE 1 GM, FOLIC ACID 1 MG, THIAMINE 200 MG, MV... IV SCH (06:11)
--- NOTE | 2021-05-01 07:10 | NUR ---
PT LAYING FLAT ON BACK, WATCHING TELEVISION. UPON ENTRY TO ROOM PT WAS COMPLETING USING URINAL. NAD NOTED AT THIS TIME. PT DENIES PAIN AT THIS TIME. IVF INFUSING PER EMAR, PT CURRENLY ON RALLY BAG AND WILL RETURN TO K FLUIDS FOLLOWING INFUSION. SIDE RAILS UP, CALL LIGHT IN REACH.
[2021-05-01] MEDS ORDERED: AMLODIPINE 5 MG TABLET ONE (08:01)
[2021-05-01] MEDS ORDERED: TAMSULOSIN 0.4 MG CAP.ER.24H ONE (08:01)
[2021-05-01] MEDS ORDERED: LISINOPRIL 20 MG TABLET ONE (08:01)
--- NOTE | 2021-05-01 08:10 | NUR ---
PT GIVEN MEAL TRAY, SITTING UP TO EAT. NAD NOTED AT THIS TIME. RESPIRATIONS EVEN AND UNLABORED ON RA. SIDE RAILS UP AND SZ PRECAUTIONS REMAIN IN PLACE. CALL LIGHT IN REACH. URINAL IN REACH.
[2021-05-01] MEDS: TAMSULOSIN 0.4 MG CAP.ER.24H PO SCH (08:25)
[2021-05-01] MEDS: FOLIC ACID 1 MG TABLET PO SCH (08:29)
--- NOTE | 2021-05-01 08:56 | NUR ---
CALL TO HOUSEKEEPING FOR HOSPITAL BED.
[2021-05-01] MEDS: LISINOPRIL 20 MG TABLET PO SCH ×2 (09:00→20:37)
[2021-05-01] MEDS: AMLODIPINE 5 MG TABLET PO SCH (09:25)
--- NOTE | 2021-05-01 09:40 | NUR ---
PT MOVED OVER TO HOSPITAL BED, REMAINS IN SAME ED ROOM. NAD NOTED AT THIS TIME. IVF INFUSING PER EMAR.
--- NOTE | 2021-05-01 10:10 | NUR ---
PT ASLEEP IN BED, NAD NOTED AT THIS TIME. SIDE RAILS UP, CALL LIGHT IN REACH. URINAL IN REACH.
--- NOTE | 2021-05-01 11:05 | NUR ---
PT RESTING WITH EYES CLOSED. NAD NOTED AT THIS TIME. RESPIRATIONS EVEN AND UNLABORED ON RA. SZ PADS IN PLACE. IVF INFUSING PER EMAR.
--- NOTE | 2021-05-01 12:09 | NUR ---
PT RESTING WITH EYES CLOSED, AWAKENS EASILY. NAD NOTED AT THIS TIME. SIDE RAILS UP, CALL LIGHT IN REACH.
--- NOTE | 2021-05-01 13:02 | NUR ---
PT GIVEN MEAL TRAY. NAD NOTED AT THIS TIME. PT MAEX4. SIDE RAILS UP, CALL LIGHT IN REACH.
--- NOTE | 2021-05-01 14:39 | NUR ---
FIRST ATTEMPT TO CALL REPORT.
--- NOTE | 2021-05-01 15:08 | NUR ---
REPORT TO BAILEE MOROCHO RN. PATEL JACOBSON AWARE OF PT TRANSPORT.
[2021-05-01 15:43] VITALS: BP 123/77
[2021-05-01 19:16] VITALS: BP 144/84
[2021-05-01] MEDS: ENOXAPARIN 40 MG/0.4 ML SQ SCH (20:37)
[2021-05-01] MEDS: ATORVASTATIN 80 MG TABLET PO SCH (20:37)
[2021-05-01] MEDS: NICOTINE 21 MG/24 HR PATCH.TD24 TD SCH (20:37)
[2021-05-02 00:17] VITALS: BP 97/67
[2021-05-02 06:07] VITALS: BP 133/82
[2021-05-02] MEDS: niFEDipine ER 30 MG TABLET.ER PO SCH (06:09)
[2021-05-02] MEDS: NICOTINE 21 MG/24 HR PATCH.TD24 TD SCH (08:23)
[2021-05-02] MEDS: AMLODIPINE 5 MG TABLET PO SCH (08:23)
[2021-05-02] MEDS: POTASSIUM CHLORIDE 20 MEQ, MAGNESIUM SULFATE 1 GM, FOLIC ACID 1 MG, THIAMINE 200 MG, MV... IV SCH (08:23)
[2021-05-02] MEDS: TAMSULOSIN 0.4 MG CAP.ER.24H PO SCH (08:24)
[2021-05-02] MEDS: FOLIC ACID 1 MG TABLET PO SCH (08:24)
[2021-05-02] MEDS: LISINOPRIL 20 MG TABLET PO SCH ×2 (08:24→20:35)
[2021-05-02] MEDS: LORazepam 2 MG/ML, 1ML IV PRN ×5 (08:35→20:48)
[2021-05-02] MEDS ORDERED: LORazepam 0.5MG TABLET PO PRN (10:00)
[2021-05-02] MEDS ORDERED: LORazepam 2 MG/ML, 1ML IVPush ONE (10:00)
[2021-05-02] MEDS ORDERED: LORazepam 1MG TABLET PO PRN ×4 (10:00)
[2021-05-02] MEDS ORDERED: LORazepam 2 MG/ML, 1ML IV PRN ×4 (10:00)
[2021-05-02 10:23] VITALS: BP 105/72
[2021-05-02 10:31] LABS: BASOPHILS % (AUTO) 1 % (0-1); EOSINOPHILS % (AUTO) 1 % (1-7); LYMPHOCYTES % (AUTO) 23 % (22-44); MEAN CORPUSCULAR HEMOGLOBIN 33.9 pg (27.5-34.5); MEAN CORPUSCULAR HGB CONC 34.1 g/dL (33.2-36.2); MONOCYTES % (AUTO) 18 % (2-9); NEUTROPHILS % (AUTO) 58 % (42-75); PLATELET COUNT 90 x10^3/uL (130-400); RED BLOOD COUNT 3.74 x10^6/uL (4.38-5.82); RED CELL DISTRIBUTION WIDTH 15.8 % (9.4-14.8)
[2021-05-02 10:54] LABS: ALBUMIN 2.9 g/dL (3.4-5.0); ANION GAP 9 mmol/L (5-15); CALCIUM 6.9 mg/dL (8.5-10.1); CHLORIDE 102 mmol/L (98-107)
[2021-05-02 10:57] LABS: ALANINE AMINOTRANSFERASE 74 U/L (12-78); ALKALINE PHOSPHATASE 107 U/L (45-117); BILIRUBIN,TOTAL 1.5 mg/dL (0.2-1.0); CREATININE 0.89 mg/dL (0.7-1.3); TOTAL PROTEIN 6.6 g/dL (6.4-8.2)
[2021-05-02 12:01] VITALS: BP 125/81
[2021-05-02] MEDS: D5%-0.45% NACL 1,000 ML IV SCH (13:24)
[2021-05-02 18:22] VITALS: BP 142/90
[2021-05-02] MEDS: ATORVASTATIN 80 MG TABLET PO SCH (20:34)
[2021-05-02] MEDS: ENOXAPARIN 40 MG/0.4 ML SQ SCH (20:35)
[2021-05-03 00:06] VITALS: BP 139/66
[2021-05-03] MEDS: D5%-0.45% NACL 1,000 ML IV SCH (01:19)
[2021-05-03] MEDS: POTASSIUM CHLORIDE 20 MEQ, MAGNESIUM SULFATE 1 GM, FOLIC ACID 1 MG, THIAMINE 200 MG, MV... IV SCH (05:39)
[2021-05-03 07:55] LABS: BASOPHILS % (AUTO) 1 % (0-1); EOSINOPHILS % (AUTO) 1 % (1-7); LYMPHOCYTES % (AUTO) 16 % (22-44); MEAN CORPUSCULAR HEMOGLOBIN 33.9 pg (27.5-34.5); MEAN CORPUSCULAR HGB CONC 34.4 g/dL (33.2-36.2); MEAN PLATELET VOLUME 10.1 fL (7.4-10.4); MONOCYTES % (AUTO) 16 % (2-9); NEUTROPHILS % (AUTO) 66 % (42-75); PLATELET COUNT 102 x10^3/uL (130-400); RED CELL DISTRIBUTION WIDTH 15.3 % (9.4-14.8)
[2021-05-03 08:03] LABS: ALBUMIN 3.3 g/dL (3.4-5.0); ANION GAP 12 mmol/L (5-15); CHLORIDE 99 mmol/L (98-107)
[2021-05-03 08:07] LABS: ALANINE AMINOTRANSFERASE 108 U/L (12-78); ALKALINE PHOSPHATASE 120 U/L (45-117); BILIRUBIN,TOTAL 1.8 mg/dL (0.2-1.0); CREATININE 0.68 mg/dL (0.7-1.3); TOTAL PROTEIN 7.3 g/dL (6.4-8.2)
[2021-05-03 09:11] VITALS: BP 132/86
[2021-05-03] MEDS: LISINOPRIL 20 MG TABLET PO SCH ×2 (10:21→21:04)
[2021-05-03] MEDS: FOLIC ACID 1 MG TABLET PO SCH (10:21)
[2021-05-03] MEDS: AMLODIPINE 5 MG TABLET PO SCH (10:21)
[2021-05-03] MEDS: niFEDipine ER 30 MG TABLET.ER PO SCH (10:21)
[2021-05-03] MEDS: NICOTINE 21 MG/24 HR PATCH.TD24 TD SCH (10:22)
[2021-05-03] MEDS: TAMSULOSIN 0.4 MG CAP.ER.24H PO SCH (10:22)
[2021-05-03] MEDS: LORazepam 2 MG/ML, 1ML IV PRN (10:37)
[2021-05-03] MEDS ORDERED: POTASSIUM CHLORIDE 40 MEQ in SODIUM CHLORIDE 0.9% 500 ML IV ONE (12:00)
[2021-05-03 15:00] VITALS: BP 111/76
[2021-05-03 21:03] VITALS: BP 121/81
[2021-05-03] MEDS: ATORVASTATIN 80 MG TABLET PO SCH (21:04)
[2021-05-03] MEDS: ENOXAPARIN 40 MG/0.4 ML SQ SCH (21:04)
[2021-05-04 00:58] VITALS: BP 101/71
[2021-05-04] MEDS: niFEDipine ER 30 MG TABLET.ER PO SCH (06:06)
[2021-05-04] MEDS: POTASSIUM CHLORIDE 20 MEQ, MAGNESIUM SULFATE 1 GM, FOLIC ACID 1 MG, THIAMINE 200 MG, MV... IV SCH (06:06)
[2021-05-04 06:07] VITALS: BP 110/72
[2021-05-04 06:51] VITALS: BP 113/75
[2021-05-04] MEDS: FOLIC ACID 1 MG TABLET PO SCH (10:40)
[2021-05-04] MEDS: TAMSULOSIN 0.4 MG CAP.ER.24H PO SCH (10:40)
[2021-05-04] MEDS: AMLODIPINE 5 MG TABLET PO SCH (10:40)
[2021-05-04] MEDS: LISINOPRIL 20 MG TABLET PO SCH ×2 (10:40→21:01)
[2021-05-04] MEDS: NICOTINE 21 MG/24 HR PATCH.TD24 TD SCH (10:41)
[2021-05-04 13:15] VITALS: BP 109/71
[2021-05-04 20:59] VITALS: BP 129/90
[2021-05-04] MEDS: ENOXAPARIN 40 MG/0.4 ML SQ SCH (21:01)
[2021-05-04] MEDS: ATORVASTATIN 80 MG TABLET PO SCH (21:01)
[2021-05-05 02:35] VITALS: BP 101/67
[2021-05-05 05:33] LABS: BASOPHILS % (AUTO) 1 % (0-1); EOSINOPHILS % (AUTO) 1 % (1-7); LYMPHOCYTES % (AUTO) 32 % (22-44); MEAN CORPUSCULAR HEMOGLOBIN 34.3 pg (27.5-34.5); MEAN CORPUSCULAR HGB CONC 34.3 g/dL (33.2-36.2); MEAN PLATELET VOLUME 9.4 fL (7.4-10.4); MONOCYTES % (AUTO) 18 % (2-9); NEUTROPHILS % (AUTO) 48 % (42-75); PLATELET COUNT 132 x10^3/uL (130-400); RED BLOOD COUNT 4.02 x10^6/uL (4.38-5.82); RED CELL DISTRIBUTION WIDTH 15.9 % (9.4-14.8)
[2021-05-05] MEDS: POTASSIUM CHLORIDE 20 MEQ, MAGNESIUM SULFATE 1 GM, FOLIC ACID 1 MG, THIAMINE 200 MG, MV... IV SCH (05:41)
[2021-05-05] MEDS: niFEDipine ER 30 MG TABLET.ER PO SCH (05:46)
[2021-05-05 05:47] VITALS: BP 132/84
[2021-05-05 05:50] LABS: ALBUMIN 2.8 g/dL (3.4-5.0); ANION GAP 8 mmol/L (5-15); CHLORIDE 106 mmol/L (98-107)
[2021-05-05 05:54] LABS: ALANINE AMINOTRANSFERASE 114 U/L (12-78); ALKALINE PHOSPHATASE 129 U/L (45-117); BILIRUBIN,TOTAL 0.9 mg/dL (0.2-1.0); TOTAL PROTEIN 6.7 g/dL (6.4-8.2)
[2021-05-05 07:18] VITALS: BP 128/83
[2021-05-05] MEDS: TAMSULOSIN 0.4 MG CAP.ER.24H PO SCH (10:00)
[2021-05-05] MEDS: FOLIC ACID 1 MG TABLET PO SCH (10:00)
[2021-05-05] MEDS: LISINOPRIL 20 MG TABLET PO SCH (10:00)
[2021-05-05] MEDS: AMLODIPINE 5 MG TABLET PO SCH (10:01)
[2021-05-05] MEDS: NICOTINE 21 MG/24 HR PATCH.TD24 TD SCH (11:24)
[2021-05-05 12:08] VITALS: BP 132/83
[2021-05-05] MEDS ORDERED: AMLO-150 PO (13:54)
[2021-05-05] MEDS ORDERED: TAMS-11 PO (13:54)
[2021-05-05] MEDS ORDERED: THIA100T67 PO (13:54)
[2021-05-05] MEDS ORDERED: FOLI1TAB32 PO (13:54)
[2021-05-05] MEDS ORDERED: ATOR-2 PO (13:54)
[2021-05-05] MEDS ORDERED: LEVE500T53 PO (13:54)
[2021-05-05] MEDS ORDERED: CLON0.1T22 PO (13:54)
== END 2021-05-05 18:00 | disposition home or self-care (01) | DRG 101 ==
LOC: ED 20:54 → SUATTDRO 22:23 → EDIP 22:24 → INTOOBSV 22:24 → OBSVTOIN 22:24 → 3N 05-01 15:21
PROVIDERS: ADMIT Internal Medicine; ATTEND Hospitalist
DX: G40.509 Epileptic seizures related to external causes, not intractable, without status epilepticus (principal); F10.139 Alcohol abuse with withdrawal, unspecified; E87.1 Hypo-osmolality and hyponatremia; K70.10 Alcoholic hepatitis without ascites; I10 Essential (primary) hypertension; J44.9 Chronic obstructive pulmonary disease, unspecified; E87.6 Hypokalemia; E87.8 Other disorders of electrolyte and fluid balance, not elsewhere classified; D69.6 Thrombocytopenia, unspecified; Y90.9 Presence of alcohol in blood, level not specified; E86.0 Dehydration; Z72.0 Tobacco use; Z71.51 Drug abuse counseling and surveillance of drug abuser
CPT/HCPCS: 36415; 71045; 80048; 80053; 80076; 80307; 80320; 81001; 83690; 83735; 84100; 85025; 87086; 93005; 96360; 99285; G0378; J1650; J3411; J3475; J3480; G0480; J2060; J7030; J7040; J7121